=== PATIENT | male | born 1970 | race Caucasian/White ===

== ENCOUNTER 2017-11-21 18:56 | Inpatient (IN) ==
[2017-11-21] MEDS ORDERED: Sod Chloride 0.9% Inj 1,000 ML IV.SIG ONE ×2 (21:59→23:03)
[2017-11-21] MEDS ORDERED: Acetaminophen 325 MG Tablet PO ONE (22:26)
[2017-11-21 22:31] LABS: Baso # (Auto) 0.1 th/mm3 (0.0-0.2); Baso % (Auto) 0.5 % (0.0-2.0); Eos % (Auto) 0.1 % (0.0-4.0); Hematocrit 45.2 % (39.0-51.0); Hemoglobin 15.5 gm/dL (13.0-17.0); Lymph # (Auto) 0.4 th/mm3 (1.0-4.8); Lymph % (Auto) 2.8 % (9.0-44.0); Mean Corpuscular HGB Conc 34.3 % (32.0-36.0); Mean Corpuscular Hemoglobin 31.9 pg (27.0-34.0); Mean Platelet Volume 7.2 fL (7.0-11.0); Mono # (Auto) 1.1 th/mm3 (0.0-0.9); Mono % (Auto) 7.2 % (0.0-8.0); Neut # (Auto) 13.2 th/mm3 (1.8-7.7); Neut % (Auto) 89.4 % (16.0-70.0); Platelet Count 234 th/mm3 (150-450); Red Blood Count 4.86 mil/mm3 (4.50-5.90); Red Cell Distribution Width 12.7 % (11.6-17.2); White Blood Count 14.8 th/mm3 (4.0-11.0)
--- NOTE | 2017-11-21 22:47 | ED ---
HPI General Chief complaint: Medical Clearance Stated complaint: poss sickness from anti biotics/shots urgent care Time Seen by Provider: 11/21/17 21:50 Source: patient and family Mode of arrival: ambulatory History of Present Illness HPI narrative: 47yM presenting with nausea, vomiting, and fever. The patient states that he developed a "sore" on his left ear a week ago and has been taking antibiotics (keflex/ bactrim) for the past 6 days. For the past 3 days, he has had nausea, vomiting, and inability to tolerate any PO intake associated with tactile fevers, diaphoresis, tremor, anxiety, and headache. He reports daily alcohol use (5-6 drinks per day) but has not been able to drink for the past several days due to vomiting; no known history of EtOH withdrawal in the past. Family history is non-contributory. Related Data Home Medications Medication Instructions Recorded Confirmed amoxicillin 500 mg PO TID 11/21/17 11/21/17 sulfamethoxazole-trimethoprim 1 tab PO BID 11/21/17 11/21/17 [Bactrim DS] Allergies Allergy/AdvReac Type Severity Reaction Status Date / Time caffeine AdvReac Tachycardia Verified 11/21/17 19:43 Review of Systems Except as stated in HPI: all other systems reviewed are negative Constitutional Reports fever(s) Eyes Reports other visual disturbances Comments: Reports "the lights look weird" ENT Reports headache(s) Cardiovascular Denies chest pain Respiratory Reports cough Gastrointestinal Reports nausea and Reports vomiting Genitourinary Denies urinary frequency Musculoskeletal Reports myalgias Integumentary/Breasts Reports as per HPI Neurologic Reports tremor(s) Psychiatric Reports anxiety [facility] Medical History Medical History Hypertension (Acute) Surgical History Surgical History No history of previous surgery (Acute) Social History Social History Substance History: No History of Abuse Second Hand Smoke Exposure: Yes Smoking Status: Unknown if ever smoked How Often Do You Have a Drink Containing Alcohol: 4 or more times a week Recent Travel in [facility] within the Last 8 Weeks: No Recent Out of Country Travel within the Last 8 Weeks: No Immunization History Tetanus Immunization: >5 Years Hx Influenza Vaccine This Season: No Exam Narrative Exam Narrative: GEN: Ill-appearing male, appears uncomfortable HEENT: NCAT, PERRL, EOMI; mucosa dry CARDIO: Tachy, regular PULM: Diminished at bases bilaterally ABD: Soft, non-tender, non-distended, no guarding or rebound EXT/MS: No lower extremity edema, warm and well-perfused SKIN: Purple colored lesion to left ear lobe, no drainage, no warmth, no diaphoresis NEURO: GCS 15, A&Ox3, speech clear and fluent, (+) tremor of bilateral hands, (+ ) tongue fasciculations PSYCH: Appears mildly anxious, cooperative with exam, does not appear to be internally preoccupied Course Initial Documented Vital Signs Temperature 99.0 F 11/21/17 19:40 Pulse Rate 138 H 11/21/17 19:40 Respiratory Rate 24 11/21/17 19:40 Blood Pressure 148/99 H 11/21/17 19:40 Pulse Oximetry 99 11/21/17 19:40 Last Documented Vital Signs Temperature 99.1 F 11/22/17 03:20 Pulse Rate 132 H 11/22/17 08:00 Respiratory Rate 18 11/22/17 08:00 Blood Pressure 114/69 11/22/17 08:00 Pulse Oximetry 96 11/22/17 08:00 Sign Out Sign Out Data: Patient Sign Out occurred on 11/21/17 at 23:22. Patient's care was discussed, and care was transferred from Patricia Allen DO to Joel Ahuja MD. Sign Out Comment: Patient's signs/ symptoms concerning for acute alcohol withdrawal. 2nd dose of ativan ordered, patient will need re-evaluation following dose to see if he is appropriate for med-surg vs IMC. Case discussed with Dr. Ahuja. Last updated by Patricia Allen DO at 11/21/17 23:04 Post-Handoff Eval: Patient care assumed from Dr. Allen at 2300. This is a 47 year old male presents to the er for evaluation of infection to left ear. Patient noted tachycardic, elevated WBC with neutrophilia. However, this ear infection is unimpressive. CXR negative. No other source of infection seen on physical exam. Patient now fairly somnolent after medication. Protecting airway. GCS now [id number]. I agree this is probably acute alcohol withdrawal and early DTs. He would benefit from admission to the hospital. SIRS criteria noted and again has been on antibiotics. I do not see obvious source of infection. Will defer any further antibiotic therapy to inpatient team. Medical Decision Making MDM Narrative Medical decision making narrative: Assessment: 47yM presenting with nausea, vomiting, tachycardia Plan: EKG and monitor IV fluids Benzos, antiemetics Labs CXR Reassess Differential Diagnosis Differential Diagnosis: Differential diagnosis includes, but is not limited to: alcohol withdrawal, dehydration, pneumonia, pancreatitis, electrolyte abnormality, lower suspicion for intra-abdominal process Medical Records Medical records reviewed: Yes I reviewed the patient's medical records. Lab Data Lab results reviewed: Yes I reviewed the patient's lab results. Result diagrams: 11/22/17 07:30 11/22/17 07:30 Lab Results 11/21/17 11/21/17 11/21/17 Range/Units 22:25 22:25 22:25 WBC 14.8 H (4.0-11.0) th/mm3 RBC 4.86 (4.50-5.90) mil/mm3 Hgb 15.5 (13.0-17.0) gm/dL Hct 45.2 (39.0-51.0) % MCV 93.0 (80.0-100.0) fL MCH 31.9 (27.0-34.0) pg MCHC 34.3 (32.0-36.0) % RDW 12.7 (11.6-17.2) % Plt Count 234 (150-450) th/mm3 MPV 7.2 (7.0-11.0) fL Prelim Diff (Auto) Slide review pending Neut % (Auto) 89.4 H (16.0-70.0) % Lymph % (Auto) 2.8 L (9.0-44.0) % [place] % (Auto) 7.2 (0.0-8.0) % Eos % (Auto) 0.1 (0.0-4.0) % Baso % (Auto) 0.5 (0.0-2.0) % Neut # (Auto) 13.2 H (1.8-7.7) th/mm3 Lymph # (Auto) 0.4 L (1.0-4.8) th/mm3 [place] # (Auto) 1.1 H (0.0-0.9) th/mm3 Eos # (Auto) 0.0 (0.0-0.4) th/mm3 Baso # (Auto) 0.1 (0.0-0.2) th/mm3 WBC Differential Manual diff final Seg Neuts % (Manual) 75 H (16-70) % Band Neuts % (Manual) 13 H (0-6) % Lymphocytes % (Manual) 2 L (9-44) % Monocytes % (Manual) 7 (0-8) % Metamyelocytes % (Man) 3 H (0-1) % Abs Neuts (Manual) 13.5 H (1.8-7.7) th/mm3 Differential Comment . Toxic Vacuolation Present H (None) Platelet Estimate Normal (Normal) Platelet Morphology Normal (Normal) RBC Morphology Normal (Normal) Sodium 132 L (136-145) meq/L Potassium 3.8 (3.5-5.1) meq/L Chloride 95 L (98-107) meq/L Carbon Dioxide 22.9 (21.0-32.0) meq/L Anion Gap 14 (5-15) meq/L BUN 7 (7-18) mg/dL Creatinine 1.16 (0.60-1.30) mg/dL Estimated GFR 68 L (>89) mL/min Random Glucose 124 H (74-106) mg/dL Lactic Acid (0.4-2.0) mmol/L Calcium 9.4 (8.5-10.1) mg/dL Magnesium 1.9 (1.5-2.5) mg/dL Total Bilirubin 0.6 (0.2-1.0) mg/dL AST 47 H (15-37) U/L ALT 64 (12-78) U/L Alkaline Phosphatase 93 (45-117) U/L Total Protein 8.5 H (6.4-8.2) g/dL Albumin 4.0 (3.4-5.0) g/dL Lipase 66 L (73-393) U/L Serum Alcohol Less than 3 (0-5) mg/dL 11/21/17 11/22/17 11/22/17 Range/Units 22:26 07:30 07:30 WBC 13.1 H (4.0-11.0) th/mm3 RBC 4.60 (4.50-5.90) mil/mm3 Hgb 14.7 (13.0-17.0) gm/dL Hct 43.4 (39.0-51.0) % MCV 94.4 (80.0-100.0) fL MCH 32.0 (27.0-34.0) pg MCHC 33.8 (32.0-36.0) % RDW 12.9 (11.6-17.2) % Plt Count 218 (150-450) th/mm3 MPV 7.5 (7.0-11.0) fL Prelim Diff (Auto) Neut % (Auto) 85.8 H (16.0-70.0) % Lymph % (Auto) 4.9 L (9.0-44.0) % [place] % (Auto) 8.8 H (0.0-8.0) % Eos % (Auto) 0.1 (0.0-4.0) % Baso % (Auto) 0.4 (0.0-2.0) % Neut # (Auto) 11.3 H (1.8-7.7) th/mm3 Lymph # (Auto) 0.6 L (1.0-4.8) th/mm3 [place] # (Auto) 1.2 H (0.0-0.9) th/mm3 Eos # (Auto) 0.0 (0.0-0.4) th/mm3 Baso # (Auto) 0.0 (0.0-0.2) th/mm3 WBC Differential . Seg Neuts % (Manual) (16-70) % Band Neuts % (Manual) (0-6) % Lymphocytes % (Manual) (9-44) % Monocytes % (Manual) (0-8) % Metamyelocytes % (Man) (0-1) % Abs Neuts (Manual) (1.8-7.7) th/mm3 Differential Comment Auto diff final Toxic Vacuolation (None) Platelet Estimate (Normal) Platelet Morphology (Normal) RBC Morphology (Normal) Sodium 135 L (136-145) meq/L Potassium 3.1 L (3.5-5.1) meq/L Chloride 99 (98-107) meq/L Carbon Dioxide 22.7 (21.0-32.0) meq/L Anion Gap 13 (5-15) meq/L BUN 7 (7-18) mg/dL Creatinine 1.14 (0.60-1.30) mg/dL Estimated GFR 69 L (>89) mL/min Random Glucose 116 H (74-106) mg/dL Lactic Acid 1.6 (0.4-2.0) mmol/L Calcium 8.9 (8.5-10.1) mg/dL Magnesium (1.5-2.5) mg/dL Total Bilirubin 0.6 (0.2-1.0) mg/dL AST 44 H (15-37) U/L ALT 65 (12-78) U/L Alkaline Phosphatase 86 (45-117) U/L Total Protein 7.9 D (6.4-8.2) g/dL Albumin 3.6 (3.4-5.0) g/dL Lipase (73-393) U/L Serum Alcohol (0-5) mg/dL 11/22/17 Range/Units 08:10 WBC (4.0-11.0) th/mm3 RBC (4.50-5.90) mil/mm3 Hgb (13.0-17.0) gm/dL Hct (39.0-51.0) % MCV (80.0-100.0) fL MCH (27.0-34.0) pg MCHC (32.0-36.0) % RDW (11.6-17.2) % Plt Count (150-450) th/mm3 MPV (7.0-11.0) fL Prelim Diff (Auto) Neut % (Auto) (16.0-70.0) % Lymph % (Auto) (9.0-44.0) % [place] % (Auto) (0.0-8.0) % Eos % (Auto) (0.0-4.0) % Baso % (Auto) (0.0-2.0) % Neut # (Auto) (1.8-7.7) th/mm3 Lymph # (Auto) (1.0-4.8) th/mm3 [place] # (Auto) (0.0-0.9) th/mm3 Eos # (Auto) (0.0-0.4) th/mm3 Baso # (Auto) (0.0-0.2) th/mm3 WBC Differential Seg Neuts % (Manual) (16-70) % Band Neuts % (Manual) (0-6) % Lymphocytes % (Manual) (9-44) % Monocytes % (Manual) (0-8) % Metamyelocytes % (Man) (0-1) % Abs Neuts (Manual) (1.8-7.7) th/mm3 Differential Comment Toxic Vacuolation (None) Platelet Estimate (Normal) Platelet Morphology (Normal) RBC Morphology (Normal) Sodium (136-145) meq/L Potassium (3.5-5.1) meq/L Chloride (98-107) meq/L Carbon Dioxide (21.0-32.0) meq/L Anion Gap (5-15) meq/L BUN (7-18) mg/dL Creatinine (0.60-1.30) mg/dL Estimated GFR (>89) mL/min Random Glucose (74-106) mg/dL Lactic Acid 6.2 H* (0.4-2.0) mmol/L Calcium (8.5-10.1) mg/dL Magnesium (1.5-2.5) mg/dL Total Bilirubin (0.2-1.0) mg/dL AST (15-37) U/L ALT (12-78) U/L Alkaline Phosphatase (45-117) U/L Total Protein (6.4-8.2) g/dL Albumin (3.4-5.0) g/dL Lipase (73-393) U/L Serum Alcohol (0-5) mg/dL Imaging Data Attestation: I personally reviewed and interpreted this imaging study as follows : My impression: CXR0 Airway midline. No focal infiltrates. No pneumothorax. No pleural effusion. Cardiac and mediastinal silhouettes within normal limits. Radiologist's impression: ITS Impressions Chest X-Ray 11/21/17 21:59 CONCLUSION: No acute cardiopulmonary process. Abdomen/Pelvis CT 11/22/17 00:01 CONCLUSION: 1. Moderate bladder distention. Although nonspecific, consider evaluation for bladder outlet obstruction or neurogenic bladder. 2. Mild hepatomegaly with diffusely decreased hepatic density consistent with hepatic steatosis or medical liver disease. 3. Normal appendix. Discharge Plan Discharge Disposition Patient Disposition: 30 Still Patient Discharge Condition Condition: Stable Discharge Details Diagnosis: Alcohol withdrawal, SIRS (systemic inflammatory response syndrome) Physicians Team ED Provider: Joel Ahuja Primary Care Provider: Primary Care Tania Lockett Attending Provider: Deion Salas Other Providers: Grace Golden Interventions Interventions: Vital Signs Last Done: 11/22/17 00:59 Status ED Status: Admitted Observation Patient
--- NOTE | 2017-11-21 22:50 | XR ---
EXAM DATE: 11/21/2017 10:41 PM EDT AGE/SEX: 47 years / Male INDICATIONS: Short of breath. CLINICAL DATA: This is the patient's initial encounter. Patient reports that signs and symptoms have been present for 4 - 6 days and indicates a pain score of 0/10. MEDICAL/SURGICAL HISTORY: None. None. COMPARISON: No prior exams available for comparison. FINDINGS: A single AP view of the chest demonstrates the lungs to be symmetrically aerated without evidence of mass, infiltrate or effusion. The cardiomediastinal contours are unremarkable. Osseous structures a re intact. CONCLUSION: No acute cardiopulmonary process. Electronically signed by: Milton Ybarra MD 11/21/2017 10:48 PM EDT
[2017-11-21 22:56] LABS: Anion Gap 14 meq/L (5-15); Aspartate Aminotransferase 47 U/L (15-37); Blood Urea Nitrogen 7 mg/dL (7-18); Calcium 9.4 mg/dL (8.5-10.1); Carbon Dioxide 22.9 meq/L (21.0-32.0); Chloride 95 meq/L (98-107); Glomerular Filtration Rate 68 mL/min (>89); Glucose,Random 124 mg/dL (74-106); Lipase 66 U/L (73-393); Magnesium 1.9 mg/dL (1.5-2.5); Potassium 3.8 meq/L (3.5-5.1); Sodium 132 meq/L (136-145)
[2017-11-21 22:57] LABS: Alanine Aminotransferase 64 U/L (12-78)
[2017-11-21 22:59] LABS: Alkaline Phosphatase 93 U/L (45-117); Total Protein 8.5 g/dL (6.4-8.2)
[2017-11-21 23:09] LABS: Lymphocytes 2 % (9-44); Metamyelocytes 3 % (0-1); Monocytes 7 % (0-8); Platelet Estimate Normal (Normal); Platelet Morphology Normal (Normal); RBC Morphology Normal (Normal); Toxic Vacuolation Present
--- NOTE | 2017-11-22 01:22 | CT ---
EXAM DATE: 11/22/2017 1:12 AM EDT AGE/SEX: 47 years / Male INDICATIONS: Abdomen pain. CLINICAL DATA: This is the patient's initial encounter. Patient reports that signs and symptoms have been present for 1 day and indicates a pain score of 5/10. MEDICAL/SURGICAL HISTORY: Hypertension. None. ORAL CONTRAST: No oral contrast ingested. RADIATION DOSE: 9.96 CTDI (mGy) COMPARISON: No prior exams available for comparison. TECHNIQUE: Multiple contiguous axial images were obtained through the abdomen and pelvis following b olus infusion of 100 ml Omnipaque 350 (iohexol) nonionic water-soluble contrast as a single exam do se. No oral contrast ingested. Using automated exposure control and adjustment of the mA and/or kV a ccording to patient size, radiation dose was kept as low as reasonably achievable to obtain optimal d iagnostic quality images. DICOM format image data is available electronically for review and compari son. FINDINGS: LOWER LUNGS: The visualized lower lungs are clear. LIVER: Diffusely decreased hepatic density and mild hepatomegaly. No intrahepatic ductal dilatation or significant focal mass. No calcified gallstones. SPLEEN: Homogeneous density without enlargement. PANCREAS: Unremarkable without mass or calcification. KIDNEYS: Kidneys demonstrate symmetrical enhancement and are symmetrical in size without evidence fo r radiopaque renal calculi or hydronephrosis. ADRENAL GLANDS: Unremarkable. AORTA: Thania-aneurysmal. BOWEL/MESENTERY: The bowel loops are grossly unremarkable. The cecum and sigmoid colon have a janell l configuration. Appendix is visualized and normal in appearance. No free fluid or drainable fluid co llections. ABDOMINAL WALL: Intact. RETROPERITONEUM: No evidence of adenopathy in the retrocrural, para-aortic, or deep pelvic regions. BLADDER: Bladder is moderately distended but otherwise unremarkable. REPRODUCTIVE: No abnormal masses or calcifications seen. BONY STRUCTURES: Unremarkable. CONCLUSION: 1. Moderate bladder distention. Although nonspecific, consider evaluation for bladder outlet obstruc tion or neurogenic bladder. 2. Mild hepatomegaly with diffusely decreased hepatic density consistent with hepatic steatosis or m edical liver disease. 3. Normal appendix. Electronically signed by: Boone Mckeon MD 11/22/2017 1:21 AM EDT
[2017-11-22] MEDS ORDERED: Haloperidol Inj 5 MG/ML Ampul IV.PUSH PRN (02:53)
[2017-11-22] MEDS ORDERED: Clindamycin 900 mg/NS Premix 900 MG/50 ML PIGGYBACK IV.SIG SCH (03:00)
[2017-11-22] MEDS ORDERED: Vancomycin Consult Pharmacy 1 EACH OTHER SCH (08:15)
--- NOTE | 2017-11-22 08:17 | P.HP ---
History of Present Illness Primary Care Physician: No Primary Care Physician Chief Complaint: Left ear pain, generalized weakness History of Present Illness: Mr. Chen is a 47-year-old male with a history of hypertension who presented to the emergency department on 11/21/2017 due to generalized weakness, left ear pain as well as nausea and vomiting. He went to an urgent care about 10 days ago due to left earlobe pain and lesion. He apparently was given several doses of IV steroid as well as prescription for Keflex and Bactrim. His symptoms did not improve and he started having fever, diaphoresis. Subsequently he decided to come to the emergency department. Patient reports drinking 5-6 alcoholic drinks a day. However due to nausea vomiting he has not had much to drink in the recent few days. At the time of this interview, patient feels fatigued. No chest pain, shortness of breath. No changes in bowel or bladder habits. - Diagnosis (1) Severe sepsis (2) Abscess of left earlobe (3) Alcohol withdrawal Inpatient Certification: I certify that the inpatient services were ordered in accordance with Medicare regulations governing the order. This includes certification that hospital inpatient services are reasonable and necessary and in the case of services not specified as inpatient-only under 42 CFR 419.22(n), that they are appropriately provided as inpatient services in accordance to with the 2-midnight benchmark under 43 CFR 412.3(e) Estimated Total Length of Stay (Days): 2 Plans for Post Hospital Care: Not yet determined Review of Systems All other systems reviewed negative except as stated in HPI Constitutional: Reports body ache(s), Reports fatigue, Reports fever(s) Comments: Left earlobe pain, lesion Cardiovascular: Reports fast heart rate PMFSH - History History Provided By: Patient - Medical History Medical History: Medical History (Last Reviewed 11/21/17 @ 22:40 by Patricia Allen DO) Hypertension - Surgical History Surgical History: Surgical History (Last Reviewed 11/21/17 @ 22:40 by Patricia Allen DO) No history of previous surgery - Tobacco History Second Hand Smoke Exposure: Yes Tobacco Use In Past 30 Days: Yes Smoking Status: Unknown if ever smoked - Alcohol History How Often Do You Have a Drink Containing Alcohol: 4 or more times a week - Substance Use History Substance History: No History of Abuse - Travel History Recent Travel in the [facility] Within the Last 8 Weeks: No Recent Travel Out of the Country Within the Last 8 Weeks: No - Immunization History Tetanus Immunization: >5 Years Hx Influenza Vaccine This Season: No Medications and Allergies Active Medications: Active Medications Flumazenil (Romazecon Inj) 0.2 mg IV.PUSH Q1M PRN PRN Reason: OVERSEDATION Folic Acid (Folic Acid) 1 mg PO DAILY [facility] Stop: 11/27/17 08:59 Haloperidol Lactate (Haldol Inj) 1 mg IV.PUSH Q15M PRN PRN Reason: for severe agitation Clindamycin/Sodium Chloride (Cleocin 900 Mg/Ns Premix) 900 mg in 50 mls @ 100 mls/hr IV.SIG Q8H [facility] Last Admin: 11/22/17 04:59 Dose: 100 mls/hr Piperacillin/Tazobactam/Dextrose (Zosyn 4.5 Gm Premix) 4.5 gm in 100 mls @ 200 mls/hr IV.SIG Q6H [facility] Vancomycin HCl 1,500 mg/ (Sodium Chloride) 515 mls @ 250 mls/hr IV.SIG ONCE ONE Stop: 11/22/17 10:18 Sodium Chloride (Ns Inj) 1,000 mls @ 125 mls/hr IV.CONT .Q8H [facility] Pharmacy Profile Note (Vancomycin Consult Pharmacy) 0 mls @ 0 mls/hr OTHER UNSCH [facility] Lorazepam (Ativan) 1 mg PO Q4H PRN PRN Reason: for CIWA 8-10 Lorazepam (Ativan) 2 mg PO Q2H PRN PRN Reason: for CIWA 11-14 Lorazepam (Ativan Inj) 2 mg IV.PUSH Q2H PRN PRN Reason: for CIWA 11-14 Last Admin: 11/22/17 05:00 Dose: 2 mg Lorazepam (Ativan Inj) 2 mg IV.PUSH Q1H PRN PRN Reason: for CIWA 15-20 Lorazepam (Ativan Inj) 2 mg IV.PUSH Q15M PRN PRN Reason: for CIWA > 20 Lorazepam (Ativan Inj) 1 mg IV.PUSH Q4H PRN PRN Reason: for CIWA 8-10 Last Admin: 11/22/17 07:28 Dose: 1 mg Multivitamins/Minerals (Theragran-M) 1 tab PO DAILY [facility] Stop: 11/27/17 08:59 Ondansetron HCl (Zofran Inj) 4 mg IV.PUSH Q6H PRN PRN Reason: NAUSEA OR VOMITING Ondansetron HCl (Zofran Odt) 4 mg PO Q6H PRN PRN Reason: NAUSEA OR VOMITING Thiamine HCl (Vitamin B1) 100 mg PO DAILY [facility] Allergies Allergy/AdvReac Type Severity Reaction Status Date / Time caffeine AdvReac Tachycardia Verified 11/21/17 19:43 Home Medications Medication Instructions Recorded Confirmed Type amoxicillin 500 mg PO TID 11/21/17 11/21/17 History sulfamethoxazole-trimethoprim 1 tab PO BID 11/21/17 11/21/17 History [Bactrim DS] Exam Vital signs: Vital Signs 11/21/17 19:40 11/21/17 19:42 11/21/17 22:54 Temperature 99.0 F 100.5 F H Pulse Rate 138 H 126 H 140 H Respiratory Rate 24 20 24 Blood Pressure 148/99 H 139/87 145/89 H Pulse Oximetry 99 98 99 11/21/17 23:39 11/22/17 00:59 11/22/17 03:20 Temperature 99.3 F 98.4 F 99.1 F Pulse Rate 138 H 120 H 120 H Respiratory Rate 20 20 Blood Pressure 134/70 124/78 113/70 Pulse Oximetry 98 97 11/22/17 06:43 11/22/17 07:30 Temperature Pulse Rate 142 H 142 H Respiratory Rate 20 Blood Pressure 125/81 130/85 Pulse Oximetry 20 L 97 Intake & Output 11/21/17 11/22/17 11/22/17 18:59 06:59 18:59 Intake Total 200 / 200 Output Total 500 / 500 Balance -300 / -300 Weight 83.915 kg Intake: Oral 200 / 200 Output: Urine 500 / 500 Other: # Voids 1 Narrative: GENERAL: This is a well-nourished, well-developed patient, in no apparent distress. SKIN: No rashes, ecchymoses or lesions. Warm and dry. HEAD: Atraumatic. Normocephalic. No temporal or scalp tenderness. EYES: Pupils equal round and reactive. No injection or drainage. ENT: Nose without bleeding, purulent drainage or septal hematoma. Airway patent. Left earlobe has a purplish lesion, no drainage. NECK: Trachea midline. No lymphadenopathy. Supple, nontender, no meningeal signs. CARDIOVASCULAR: Tachycardic without murmurs, gallops, or rubs. No JVD. RESPIRATORY: Clear to auscultation. Breath sounds equal bilaterally. No wheezes , rales, or rhonchi. GASTROINTESTINAL: Abdomen soft, non-tender, nondistended. No guarding. MUSCULOSKELETAL: Extremities without clubbing, cyanosis, or edema. NEUROLOGICAL: Awake and alert. Cranial nerves II through XII intact. No focal neurological deficits. Normal speech. Results - Labs CBC & Chem 7: 11/22/17 07:30 11/22/17 07:30 Labs: Laboratory Results - last 24 hr 11/21/17 11/21/17 11/21/17 22:25 22:25 22:25 WBC 14.8 H RBC 4.86 Hgb 15.5 Hct 45.2 MCV 93.0 MCH 31.9 MCHC 34.3 RDW 12.7 Plt Count 234 MPV 7.2 Prelim Diff (Auto) Slide review pending Neut % (Auto) 89.4 H Lymph % (Auto) 2.8 L Waldo % (Auto) 7.2 Eos % (Auto) 0.1 Baso % (Auto) 0.5 Neut # (Auto) 13.2 H Lymph # (Auto) 0.4 L Waldo # (Auto) 1.1 H Eos # (Auto) 0.0 Baso # (Auto) 0.1 WBC Differential Manual diff final Seg Neuts % (Manual) 75 H Band Neuts % (Manual) 13 H Lymphocytes % (Manual) 2 L Monocytes % (Manual) 7 Metamyelocytes % (Man) 3 H Abs Neuts (Manual) 13.5 H Differential Comment . Toxic Vacuolation Present H Platelet Estimate Normal Platelet Morphology Normal RBC Morphology Normal Sodium 132 L Potassium 3.8 Chloride 95 L Carbon Dioxide 22.9 Anion Gap 14 BUN 7 Creatinine 1.16 Estimated GFR 68 L Random Glucose 124 H Lactic Acid Calcium 9.4 Magnesium 1.9 Total Bilirubin 0.6 AST 47 H ALT 64 Alkaline Phosphatase 93 Total Protein 8.5 H Albumin 4.0 Lipase 66 L Serum Alcohol Less than 3 11/21/17 22:26 WBC RBC Hgb Hct MCV MCH MCHC RDW Plt Count MPV Prelim Diff (Auto) Neut % (Auto) Lymph % (Auto) Waldo % (Auto) Eos % (Auto) Baso % (Auto) Neut # (Auto) Lymph # (Auto) Waldo # (Auto) Eos # (Auto) Baso # (Auto) WBC Differential Seg Neuts % (Manual) Band Neuts % (Manual) Lymphocytes % (Manual) Monocytes % (Manual) Metamyelocytes % (Man) Abs Neuts (Manual) Differential Comment Toxic Vacuolation Platelet Estimate Platelet Morphology RBC Morphology Sodium Potassium Chloride Carbon Dioxide Anion Gap BUN Creatinine Estimated GFR Random Glucose Lactic Acid 1.6 Calcium Magnesium Total Bilirubin AST ALT Alkaline Phosphatase Total Protein Albumin Lipase Serum Alcohol - Imaging Impressions Chest X-Ray 11/21/17 21:59 CONCLUSION: No acute cardiopulmonary process. Abdomen/Pelvis CT 11/22/17 00:01 CONCLUSION: 1. Moderate bladder distention. Although nonspecific, consider evaluation for bladder outlet obstruction or neurogenic bladder. 2. Mild hepatomegaly with diffusely decreased hepatic density consistent with hepatic steatosis or medical liver disease. 3. Normal appendix. Caprini VTE Risk Assessment Caprini VTE Risk Assessment: Moderate/High Risk (score >= 2) Caprini Risk Assessment Model: Point Value = 1 Point Value = 2 Point Value = 3 Point Value = 5 Age 41-60 Minor surgery BMI > 25 kg/m2 Swollen legs Varicose veins or History of unexplained or recurrent spontaneous Oral contraceptives or hormone replacement Sepsis (< 1 month) Serious lung disease, including pneumonia (< 1 month) Abnormal pulmonary function Acute myocardial infarction Congestive heart failure (< 1 month) History of inflammatory bowel disease Medical patient at bed rest Age 61-74 Arthroscopic surgery Major open surgery (> 45 min) Laparoscopic surgery (> 45 min) Malignancy Confined to bed (> 72 hours) Immobilizing plaster cast Central venous access Age >= 75 History of VTE Family history of VTE Factor V Leiden Prothrombin [id number] Lupus anticoagulant Anticardiolipin antibodies Elevated serum homocysteine Heparin-induced thrombocytopenia Other congenital or acquired thrombophilia Stroke (< 1 month) Elective arthroplasty Hip, pelvis, or leg fracture Acute spinal cord injury (< 1 month) Prophylaxis Regimen: Total Risk Factor Score Risk Level Prophylaxis Regimen 0-1 Low Early ambulation 2 Moderate Order ONE of the following: *Sequential Compression Device (SCD) *Heparin 5000 units SQ BID 3-4 Higher Order ONE of the following medications: *Heparin 5000 units SQ TID *Enoxaparin/Lovenox 40 mg SQ daily (WT < 150 kg, CrCl > 30 mL/min) *Enoxaparin/Lovenox 30 mg SQ daily (WT < 150 kg, CrCl > 10-29 mL/min) *Enoxaparin/Lovenox 30 mg SQ BID (WT < 150 kg, CrCl > 30 mL/min) AND/OR *Sequential Compression Device (SCD) 5 or more Highest Order ONE of the following medications: *Heparin 5000 units SQ TID (Preferred with Epidurals) *Enoxaparin/Lovenox 40 mg SQ daily (WT < 150 kg, CrCl > 30 mL/min) *Enoxaparin/Lovenox 30 mg SQ daily (WT < 150 kg, CrCl > 10-29 mL/min) *Enoxaparin/Lovenox 30 mg SQ BID (WT < 150 kg, CrCl > 30 mL/min) AND *Sequential Compression Device (SCD) Assessment and Plan - Assessment (1) Severe sepsis Code(s): A41.9 - Sepsis, unspecified organism; R65.20 - Severe sepsis without septic shock Status: Acute (2) Abscess of left earlobe Code(s): H60.02 - Abscess of left external ear Status: Acute (3) Alcohol withdrawal Code(s): F10.239 - Alcohol dependence with withdrawal, unspecified Status: Acute - Plan Mr. Chen is a 47 year old male with a history of hypertension, alcoholism who presents to the ED due to generalized weakness, left earlobe lesion, subjective fever, nausea and vomiting. Patient was recently treated at an urgent care for earlobe lesion with bactrim, keflex and probably IV steroid. Severe Sepsis (Tachycardic, leukocytosis, Lactic acid 6.2, Suspected infection left earlobe) Left earlobe abscess Likely Varicella Zoster infection (Chicken Pox) Possible virus encephalopathy - Will switch Clindamycin to Vanc and Zosyn for now. - Consulted ID who recommended starting patient on Acyclovir, MRI brain and LP - Start IV NS @ 125cc/hour and 2L NS bolus. - Lactic acid 1.6 on admission, repeat Lactic acid 6.2. Alcohol abuse - [facility] protocol - Thiamine IV, Folic acid PO. Mild Acute kidney injury Mild hyponatremia Hypokalemia - Creatinine 1.16 ==> 1.14. Na 132 ==> 135. K 3.8 ==> 3.1. - Will give IV KCL. Mg was 1.9. Full code. Lovenox.
[2017-11-22 09:41] LABS: Baso % (Auto) 0.4 % (0.0-2.0); Eos % (Auto) 0.1 % (0.0-4.0); Hematocrit 43.4 % (39.0-51.0); Hemoglobin 14.7 gm/dL (13.0-17.0); Lymph # (Auto) 0.6 th/mm3 (1.0-4.8); Lymph % (Auto) 4.9 % (9.0-44.0); Mean Corpuscular HGB Conc 33.8 % (32.0-36.0); Mean Corpuscular Volume 94.4 fL (80.0-100.0); Mean Platelet Volume 7.5 fL (7.0-11.0); Mono # (Auto) 1.2 th/mm3 (0.0-0.9); Mono % (Auto) 8.8 % (0.0-8.0); Neut # (Auto) 11.3 th/mm3 (1.8-7.7); Neut % (Auto) 85.8 % (16.0-70.0); Platelet Count 218 th/mm3 (150-450); Red Cell Distribution Width 12.9 % (11.6-17.2); White Blood Count 13.1 th/mm3 (4.0-11.0)
[2017-11-22] MEDS: Multivitamin/Minerals Therapeutic Tablet PO SCH (09:47)
[2017-11-22] MEDS: Folic Acid 1 MG Tablet PO SCH (09:47)
[2017-11-22] MEDS: Piperacil/Tazo 4.5 GM Premix 4.5 GM/100 ML BAG IV.SIG SCH (09:47)
[2017-11-22] MEDS: Sod Chloride 0.9% Inj 1,000 ML IV.CONT SCH (09:48)
[2017-11-22 10:03] LABS: Albumin 3.6 g/dL (3.4-5.0); Anion Gap 13 meq/L (5-15); Blood Urea Nitrogen 7 mg/dL (7-18); Calcium 8.9 mg/dL (8.5-10.1); Carbon Dioxide 22.7 meq/L (21.0-32.0); Chloride 99 meq/L (98-107); Glomerular Filtration Rate 69 mL/min (>89); Glucose,Random 116 mg/dL (74-106); Potassium 3.1 meq/L (3.5-5.1); Sodium 135 meq/L (136-145)
[2017-11-22 10:05] LABS: Aspartate Aminotransferase 44 U/L (15-37)
[2017-11-22 10:08] LABS: Alanine Aminotransferase 65 U/L (12-78); Alkaline Phosphatase 86 U/L (45-117); Total Protein 7.9 g/dL (6.4-8.2)
[2017-11-22] MEDS ORDERED: Potassium Chlor 20 mEq Premix 20 MEQ/100 ML PIGGYBACK IV.SIG SCH (10:30)
[2017-11-22] MEDS ORDERED: Vancomycin Inj 1,500 MG in Sodium Chlor 0.9% Inj 500 ML IV.SIG ONE (11:00)
[2017-11-22] MEDS ORDERED: Sod Chloride 0.9% Inj 2,000 ML IV.SIG ONE (11:06)
[2017-11-22] MEDS: Thiamine Inj 100 MG in Sodium Chlor 0.9% Inj 100 ML IV.SIG SCH (11:18)
--- NOTE | 2017-11-22 15:03 | P.CONID ---
History of Present Illness Service: ID Consult date: 11/22/17 Requesting Physician: Deion Salas Reason for Consult: Evaluation and Mment of Left ear lobe abscess Primary Care Provider: No Primary Care Physician Chief Complaint: Left ear pain, generalized weakness History of Present Illness: Mr. Chen is a 47-year-old male with past medical history of hypertension presents to the emergency department on November 21, 2017 generalized weakness, left ear pain as well as nausea and vomiting. Patient went to the urgent care about 10 days back due to left earlobe pain and lesion. He apparently was given several doses of IV steroids as well as a prescription of Keflex and Bactrim. His symptoms did not improve and patient started developing fever and diaphoresis. Due to extreme weakness and persistent nausea and vomiting patient presented to the hospital not so much for the left earlobe. Regarding his nausea and vomiting patient denies any history of prior gastritis. Patient does report drinking several beers up to 5 beers daily for many years. Patient denies taking any [id number] pain medications recently. The only other medications he has been on his Keflex and Bactrim. Patient went to work yesterday in the middle of his work he felt extremely weak and fatigued as he has not been eating well for the last few days. At the time of my evaluation patient was in the emergency department. Upon questioning patient's right reported that they have noticed lesions all over his back, chest abdomen as well as upper and lower extremities since he got into the hospital. Patient reports prior history of chickenpox. Patient denies any prior known history of HIV and hepatitis or any other immune compromised status. Patient consented to being tested for HIV as well as hepatitis. 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 He denies any history of trauma or any sharp needles having been an inciting agent. Pertinent positives and negatives: Patient reports a headache but no visual changes. Patient reports pain in the neck especially on movement. Infectious diseases consulted for evaluation and management of left earlobe abscess. Review of Systems Constitutional: Reports body ache(s), Reports fatigue, Reports fever(s), Reports lack of energy, Reports malaise, Reports weakness Eyes: Denies blind spots, Denies blurry vision, Denies bulging eyes, Denies change in vision, Denies double vision, Denies discharge, Denies dry eyes, Denies floaters, Denies irritation, Denies itchy eyes, Denies loss of vision, Denies pain, Denies requires corrective lenses, Denies sensitivity to light, Denies other Ears, Nose, Mouth, and Throat: Denies abnormal hearing, Denies bleeding gums, Denies bad breath, Denies change in voice, Denies dental pain, Denies difficulty swallowing, Denies dizziness, Denies dry mouth, Denies ear discharge , Denies ear pain, Denies facial pain, Denies headache(s), Denies hearing loss, Denies hoarseness, Denies lip swelling, Denies nosebleed, Denies mouth lesions, Denies mouth pain, Denies nasal congestion, Denies nasal discharge, Denies nasal obstruction, Denies nasal trauma, Denies neck lump, Denies neck pain, Denies nose pain, Denies pain with swallowing, Denies poor balance, Denies post nasal drip, Denies ringing in the ears, Denies sinus pain, Denies sinus pressure , Denies sore throat, Denies throat swelling, Denies tongue swelling, Denies other Cardiovascular: Denies chest pain, Denies chest pain at rest, Denies chest pain with activity, Denies excessive sweating, Denies fainting, Denies fast heart rate, Denies foot swelling, Denies generalized swelling, Denies irregular heart rhythm, Denies leg pain with activity, Denies leg sores, Denies leg swelling, Denies lightheadedness, Denies radiating jaw, neck or arm pain, Denies rapid, pounding, or irregular heartbeat, Denies shortness of breath, Denies shortness of breath with activity, Denies shortness of breath when lying down, Denies shortness of breath causing sudden awakening, Denies slow heart rate, Denies other Respiratory: Denies change in phlegm color, Denies chest congestion, Denies cough, Denies coughing up blood, Denies excessive phlegm production, Denies pain on inspiration, Denies pain with cough, Denies shortness of breath, Denies shortness of breath with activity, Denies snoring, Denies stridor, Denies wheezing, Denies other Gastrointestinal: Denies abdominal pain, Denies belching, Denies black, tarry stools, Denies bloating, Denies bright, red blood in stools, Denies change in bowel habits, Denies constant urge to pass stool, Denies change in stools, Denies coffee ground vomit, Denies constipation, Denies cramping, Denies difficulty swallowing, Denies excessive passing of gas, Denies feeling full early, Denies heartburn, Denies incontinent of stools, Denies loose stools, Denies nausea, Denies pain with swallowing, Denies vomiting, Denies vomiting blood, Denies other Genitourinary: Denies blood in semen, Denies blood in urine, Denies decreased urination, Denies difficulty urinating, Denies difficulty with ejaculations, Denies erectile dysfunction, Denies genital lesions, Denies genital pain, Denies painful urination, Denies side pain, Denies frequent nighttime urination , Denies painful ejaculations, Denies penile discharge, Denies scrotal swelling , Denies testicle lump, Denies testicle pain, Denies urinary frequency, Denies urinary hesitancy, Denies urinary incontinence, Denies urinary urgency, Denies other Musculoskeletal: Denies abnormal walking, Denies back pain, Denies body aches, Denies decreased muscle mass, Denies deformity, Denies joint pain, Denies joint swelling, Denies limited joint movement, Denies loss of height, Denies muscle cramps, Denies muscle weakness, Denies neck pain, Denies numbness, Denies radiating pain into limb, Denies stiffness, Denies tingling, Denies other Skin/Breast: Reports changing lesions Neurologic: Reports headache(s), Reports other Comments: Neck pain. Psychiatric: Denies abnormal sleep pattern, Denies anxiety, Denies behavioral changes, Denies change in appetite, Denies change in sex drive, Denies confusion , Denies depression, Denies difficulty concentrating, Denies hearing things others do not hear, Denies hopelessness, Denies irritability, Denies lack of enjoyment, Denies memory loss, Denies mood swings, Denies panic attacks, Denies paranoia, Denies seeing things others do not see, Denies sensing things others do not sense, Denies tactile hallucinations, Denies thoughts of hurting/killing others, Denies thoughts of hurting/killing yourself, Denies other Endocrine: Denies cold intolerance, Denies excessive sweating, Denies flushing, Denies heat intolerance, Denies increased hunger, Denies increased thirst, Denies increased urination, Denies rapid, pounding, or irregular heartbeat, Denies other Allergic/Immunologic: Denies GI upset with certain foods, Denies hives, Denies itchy eyes, Denies lip swelling, Denies seasonal runny nose, Denies throat swelling, Denies tongue swelling, Denies wheezing, Denies other PMFSH - History History Provided By: Patient - Medical History Medical History: Medical History (Last Reviewed 11/21/17 @ 22:40 by Patricia Allen DO) Hypertension - Surgical History Surgical History: Surgical History (Last Reviewed 11/21/17 @ 22:40 by Patricia Allen DO) No history of previous surgery - Tobacco History Second Hand Smoke Exposure: Yes Tobacco Use In Past 30 Days: Yes Smoking Status: Unknown if ever smoked - Alcohol History How Often Do You Have a Drink Containing Alcohol: 4 or more times a week - Substance Use History Substance History: No History of Abuse - Travel History Recent Travel in the [facility] Within the Last 8 Weeks: No Recent Travel Out of the Country Within the Last 8 Weeks: No - Immunization History Tetanus Immunization: >5 Years Hx Influenza Vaccine This Season: No Medications and Allergies Active Medications: Active Medications Enoxaparin Sodium (Lovenox Inj) 40 mg SQ Q24H DAVID Flumazenil (Romazecon Inj) 0.2 mg IV.PUSH Q1M PRN PRN Reason: OVERSEDATION Folic Acid (Folic Acid) 1 mg PO DAILY DAVID Stop: 11/27/17 08:59 Last Admin: 11/22/17 09:47 Dose: 1 mg Haloperidol Lactate (Haldol Inj) 1 mg IV.PUSH Q15M PRN PRN Reason: for severe agitation Piperacillin/Tazobactam/Dextrose (Zosyn 4.5 Gm Premix) 4.5 gm in 100 mls @ 200 mls/hr IV.SIG Q6H DAVID Last Admin: 11/22/17 09:47 Dose: 200 mls/hr Sodium Chloride (Ns Inj) 1,000 mls @ 125 mls/hr IV.CONT .Q8H DAVID Last Admin: 11/22/17 09:48 Dose: 125 mls/hr Thiamine HCl 100 mg/ Sodium (Chloride) 101 mls @ 100 mls/hr IV.SIG DAILY DAVID Stop: 11/24/17 10:01 Last Admin: 11/22/17 11:18 Dose: 100 mls/hr Acyclovir Sodium 840 mg/ (Sodium Chloride) 166.8 mls @ 166.8 mls/hr IV.SIG ONCE ONE Stop: 11/22/17 14:56 Linezolid (Zyvox 600 Mg Premix) 300 mls @ 300 mls/hr IV.SIG Q12H DAVID Lorazepam (Ativan) 1 mg PO Q4H PRN PRN Reason: for CIWA 8-10 Lorazepam (Ativan) 2 mg PO Q2H PRN PRN Reason: for CIWA 11-14 Lorazepam (Ativan Inj) 2 mg IV.PUSH Q2H PRN PRN Reason: for CIWA 11-14 Last Admin: 11/22/17 05:00 Dose: 2 mg Lorazepam (Ativan Inj) 2 mg IV.PUSH Q1H PRN PRN Reason: for CIWA 15-20 Lorazepam (Ativan Inj) 2 mg IV.PUSH Q15M PRN PRN Reason: for CIWA > 20 Lorazepam (Ativan Inj) 1 mg IV.PUSH Q4H PRN PRN Reason: for CIWA 8-10 Last Admin: 11/22/17 08:59 Dose: 1 mg Multivitamins/Minerals (Theragran-M) 1 tab PO DAILY DAVID Stop: 11/27/17 08:59 Last Admin: 11/22/17 09:47 Dose: 1 tab Ondansetron HCl (Zofran Inj) 4 mg IV.PUSH Q6H PRN PRN Reason: NAUSEA OR VOMITING Ondansetron HCl (Zofran Odt) 4 mg PO Q6H PRN PRN Reason: NAUSEA OR VOMITING Last Admin: 11/22/17 09:47 Dose: 4 mg Thiamine HCl (Vitamin B1) 100 mg PO DAILY [facility] Allergies Allergy/AdvReac Type Severity Reaction Status Date / Time caffeine AdvReac Tachycardia Verified 11/21/17 19:43 Home Medications Medication Instructions Recorded Confirmed Type amoxicillin 500 mg PO TID 11/21/17 11/21/17 History sulfamethoxazole-trimethoprim 1 tab PO BID 11/21/17 11/21/17 History [Bactrim DS] Exam Vital signs: Vital Signs 11/21/17 19:40 11/21/17 19:42 11/21/17 22:54 Temperature 99.0 F 100.5 F H Pulse Rate 138 H 126 H 140 H Respiratory Rate 24 20 24 Blood Pressure 148/99 H 139/87 145/89 H Pulse Oximetry 99 98 99 11/21/17 23:39 11/22/17 00:59 11/22/17 03:20 Temperature 99.3 F 98.4 F 99.1 F Pulse Rate 138 H 120 H 120 H Respiratory Rate 20 20 Blood Pressure 134/70 124/78 113/70 Pulse Oximetry 98 97 11/22/17 06:43 11/22/17 07:30 11/22/17 08:00 Temperature Pulse Rate 142 H 142 H 140 H Respiratory Rate 20 17 Blood Pressure 125/81 130/85 114/69 Pulse Oximetry 20 L 97 96 11/22/17 11:32 Temperature Pulse Rate 123 H Respiratory Rate 16 Blood Pressure 119/73 Pulse Oximetry Intake & Output 11/21/17 11/22/17 11/22/17 18:59 06:59 18:59 Intake Total 200 / 200 Output Total 500 / 500 Balance -300 / -300 Weight 83.915 kg Intake: Oral 200 / 200 Output: Urine 500 / 500 Other: # Voids 1 1 Narrative: GENERAL: Well-nourished well-developed, not in acute distress SKIN: Left earlobe with area of fluctuance, erythema as well as tenderness noted. Some areas of darkening of the skin over this left earlobe noted. No discharge from the ear noted. Rest of the pain of the year with no erythema tenderness. Multiple maculopapular lesions, vesicular lesions noted all over the patient's body in various stages of presentation. The one on the left upper extremity appears to be scabbing. HEAD: Atraumatic. Normocephalic. No temporal or scalp tenderness. EYES: Pupils equal round and reactive. Scleral icterus. No injection or drainage. No petechia ENT: Nothing abnormal detected. NECK: Trachea midline. Pain on flexion of the neck. No obvious neck stiffness noted. CARDIOVASCULAR: HS audible. RESPIRATORY: Clear to auscultation bilaterally. GASTROINTESTINAL: Abdomen soft nontender. MUSCULOSKELETAL: Extremities without clubbing, cyanosis. NEUROLOGICAL: Alert oriented 3. Nonfocal. Psych cooperative IV line sites ok. Results - Labs CBC & Chem 7: 11/22/17 07:30 11/22/17 07:30 Labs: Laboratory Results - last 24 hr 11/21/17 11/21/17 11/21/17 22:25 22:25 22:25 WBC 14.8 H RBC 4.86 Hgb 15.5 Hct 45.2 MCV 93.0 MCH 31.9 MCHC 34.3 RDW 12.7 Plt Count 234 MPV 7.2 Prelim Diff (Auto) Slide review pending Neut % (Auto) 89.4 H Lymph % (Auto) 2.8 L Benson % (Auto) 7.2 Eos % (Auto) 0.1 Baso % (Auto) 0.5 Neut # (Auto) 13.2 H Lymph # (Auto) 0.4 L Benson # (Auto) 1.1 H Eos # (Auto) 0.0 Baso # (Auto) 0.1 WBC Differential Manual diff final Seg Neuts % (Manual) 75 H Band Neuts % (Manual) 13 H Lymphocytes % (Manual) 2 L Monocytes % (Manual) 7 Metamyelocytes % (Man) 3 H Abs Neuts (Manual) 13.5 H Differential Comment . Toxic Vacuolation Present H Platelet Estimate Normal Platelet Morphology Normal RBC Morphology Normal Sodium 132 L Potassium 3.8 Chloride 95 L Carbon Dioxide 22.9 Anion Gap 14 BUN 7 Creatinine 1.16 Estimated GFR 68 L Random Glucose 124 H Lactic Acid Calcium 9.4 Magnesium 1.9 Total Bilirubin 0.6 AST 47 H ALT 64 Alkaline Phosphatase 93 Total Protein 8.5 H Albumin 4.0 Lipase 66 L Serum Alcohol Less than 3 11/21/17 11/22/17 11/22/17 22:26 07:30 07:30 WBC 13.1 H RBC 4.60 Hgb 14.7 Hct 43.4 MCV 94.4 MCH 32.0 MCHC 33.8 RDW 12.9 Plt Count 218 MPV 7.5 Prelim Diff (Auto) Neut % (Auto) 85.8 H Lymph % (Auto) 4.9 L Benson % (Auto) 8.8 H Eos % (Auto) 0.1 Baso % (Auto) 0.4 Neut # (Auto) 11.3 H Lymph # (Auto) 0.6 L Benson # (Auto) 1.2 H Eos # (Auto) 0.0 Baso # (Auto) 0.0 WBC Differential . Seg Neuts % (Manual) Band Neuts % (Manual) Lymphocytes % (Manual) Monocytes % (Manual) Metamyelocytes % (Man) Abs Neuts (Manual) Differential Comment Auto diff final Toxic Vacuolation Platelet Estimate Platelet Morphology RBC Morphology Sodium 135 L Potassium 3.1 L Chloride 99 Carbon Dioxide 22.7 Anion Gap 13 BUN 7 Creatinine 1.14 Estimated GFR 69 L Random Glucose 116 H Lactic Acid 1.6 Calcium 8.9 Magnesium Total Bilirubin 0.6 AST 44 H ALT 65 Alkaline Phosphatase 86 Total Protein 7.9 D Albumin 3.6 Lipase Serum Alcohol 11/22/17 11/22/17 08:10 12:15 WBC RBC Hgb Hct MCV MCH MCHC RDW Plt Count MPV Prelim Diff (Auto) Neut % (Auto) Lymph % (Auto) Benson % (Auto) Eos % (Auto) Baso % (Auto) Neut # (Auto) Lymph # (Auto) Benson # (Auto) Eos # (Auto) Baso # (Auto) WBC Differential Seg Neuts % (Manual) Band Neuts % (Manual) Lymphocytes % (Manual) Monocytes % (Manual) Metamyelocytes % (Man) Abs Neuts (Manual) Differential Comment Toxic Vacuolation Platelet Estimate Platelet Morphology RBC Morphology Sodium Potassium Chloride Carbon Dioxide Anion Gap BUN Creatinine Estimated GFR Random Glucose Lactic Acid 6.2 H* 1.1 Calcium Magnesium Total Bilirubin AST ALT Alkaline Phosphatase Total Protein Albumin Lipase Serum Alcohol - Imaging Impressions Chest X-Ray 11/21/17 21:59 CONCLUSION: No acute cardiopulmonary process. Abdomen/Pelvis CT 11/22/17 00:01 CONCLUSION: 1. Moderate bladder distention. Although nonspecific, consider evaluation for bladder outlet obstruction or neurogenic bladder. 2. Mild hepatomegaly with diffusely decreased hepatic density consistent with hepatic steatosis or medical liver disease. 3. Normal appendix. Assessment and Plan - Plan Fever with rash (diffuse vesicular, maculopapular lesions). Concern for viral exanthem ? Disseminated herpes zoster, Acute retroviral syndrome, Primary syphilis. Neck pain and headache: rule out meningoencephalitis. Left ear lobe abscess received IV steroids and antibiotics. Nausea and Vomiting: ? meds related vs meningoencephalitis related. Hyponatremia? [employer] infection related vs metabolic. Lactic acidemia ? Sepsis in an immune compromised patient. recs Continue Zosyn IV Start Zyvox IV Start Acyclovir IV for possible VZV meningoencephalitis. LP orders entered. Patient explained the procedure briefly. MRI brain with contrast ordered to look for e/o meningoencephalitis and brain abscess. HIV screen patient consented Hepatitis profile check. Check RPR with reflex to FTA-ABs. facundo loredo RN Follow cultures Follow clinically.
[2017-11-22] MEDS ORDERED: SODIUM CHLOR 0.9% IV.SIG ONE (15:30)
[2017-11-22] MEDS ORDERED: ACYCLOVIR IV.SIG ONE (15:30)
[2017-11-22 16:23] LABS: Activated Partial Thrombo Time 33.5 sec (24.3-30.1); INR 1.3 Ratio; Prothrombin Time 13.2 sec (9.8-11.6)
[2017-11-22] MEDS ORDERED: Gadobutrol PF 10 MMOL/10 ML Vial (for RAD) IV.SIG ONE (18:12)
--- NOTE | 2017-11-22 18:39 | MR ---
EXAM DATE: 11/22/2017 6:27 PM EDT AGE/SEX: 47 years / Male INDICATIONS: Encephalitis. Headaches with back pain. CLINICAL DATA: This is the patient's initial encounter. Patient reports that signs and symptoms have been present for 2 days and indicates a pain score of 10/10. MEDICAL/SURGICAL HISTORY: Hypertension. None. COMPARISON: No prior exams available for comparison. TECHNIQUE: Multiplanar, multisequence examination of the brain was performed without and with 8 ml Ga davist (gadobutrol) contrast as a single exam dose. FINDINGS: Cerebrum: Ventricles are normal. No midline shift, mass lesion, hemorrhage or acute infarction. No extraaxial fluid collections are seen. The pituitary gland and suprasellar cistern are normal in con figuration. White Matter: No significant signal abnormalities are seen in the white matter. Posterior Fossa: The cerebellum and brainstem demonstrate no acute abnormality. The 4th ventricle is midline. The cerebellopontine angle is within normal limits. The cerebellar tonsils are normal in p osition. Diffusion Imaging: No areas of restricted diffusion are seen. Extracranial: There is mild mucoperiosteal thickening within the left maxillary, ethmoid, and spheno id sinuses. CONCLUSION: 1. No acute intracranial abnormality is identified. 2. Mild paranasal sinus mucoperiosteal thickening. Electronically signed by: Milton Neri MD 11/22/2017 6:38 PM EDT
--- NOTE | 2017-11-22 19:05 | P.RAD ---
Post Procedure Progress Note - Pre Procedure Diagnosis (1) Severe sepsis - Post Procedure Diagnosis (1) Severe sepsis - Procedure Information Supervising Radiologist: Viet Reynolds MD - Plan of Activity See PACS Report for procedural detail/treatment. Spinal Procedure Lumbar Puncture L3-L4 Fluid Removal (CCs): 16 Fluid Description: Clear Additional Detail: opening pressure 25
[2017-11-22 21:34] LABS: RBC on Tube 4 23 /mm3
[2017-11-22 21:35] LABS: RBC on Tube 1 8 /mm3
[2017-11-22 21:41] LABS: Lymphocytes, CSF 84 %; Monocytes,CSF 12 %; Neutrophils,CSF 2 %
[2017-11-23] MEDS: Enoxaparin Inj 40 MG/0.4 ML Syringe SQ SCH ×2 (00:35→12:35)
[2017-11-23] MEDS: Piperacil/Tazo 4.5 GM Premix 4.5 GM/100 ML BAG IV.SIG SCH ×5 (01:17→19:36)
[2017-11-23] MEDS: Sod Chloride 0.9% Inj 1,000 ML IV.CONT SCH ×4 (01:48→19:35)
[2017-11-23] MEDS: Folic Acid 1 MG Tablet PO SCH (08:10)
[2017-11-23] MEDS: Multivitamin/Minerals Therapeutic Tablet PO SCH (08:10)
--- NOTE | 2017-11-23 08:39 | P.PNIM ---
Subjective Interval history: f/u; sepsis ill looking- has some nausea and diarrhea. Tmax 102.4. d/w the RN. Physical Exam Vital signs: Vital Signs 11/22/17 11:32 11/22/17 12:00 11/22/17 16:27 Temperature 99.0 F Pulse Rate 123 H 79 129 H Respiratory Rate 16 16 20 Blood Pressure 119/73 130/70 142/86 H Pulse Oximetry 97 11/22/17 20:00 11/23/17 00:00 11/23/17 04:00 Temperature 99.2 F 98.1 F 98.0 F Pulse Rate 126 H 79 68 Respiratory Rate 21 16 14 Blood Pressure 140/85 130/70 Pulse Oximetry 98 97 96 Intake & Output 11/22/17 11/23/17 11/23/17 18:59 06:59 18:59 Intake Total 500 / 500 100 / 100 Output Total 1000 / 1000 Balance -1000 / -1000 500 / 500 100 / 100 Intake: IV 500 / 500 Zyvox 600 mg Premix 300 ML @ 300 / 300 300 mls/hr IV.SIG Q12H DAVID Rx#: [id number] Zosyn 4.5 GM Premix 4.5 gm In 200 / 200 100 ml @ 200 mls/hr IV.SIG Q6H DAVID Rx#:[id number] Oral 100 / 100 Output: Urine 1000 / 1000 Other: # Voids 1 2 Date of Last Bowel Movement 11/23/17 # Bowel Movements 3 - Constitutional no acute distress (but ill looking.) - Routine HEENT Exam Comments: left earlobe is swollen wit erythema. - Routine Respiratory Exam Present: CTA bilaterally - Routine Cardiovascular Exam Present: RRR - Routine Abdominal Exam Present: soft - Routine Extremities Exam Comments: no pedal edema. - Routine Neurological Exam Present: alert, oriented X3 Results - Labs CBC & Chem 7: 11/22/17 07:30 11/22/17 07:30 Laboratory Results - last 24 hr 11/22/17 11/22/17 11/22/17 07:30 07:30 08:10 WBC 13.1 H RBC 4.60 Hgb 14.7 Hct 43.4 MCV 94.4 MCH 32.0 MCHC 33.8 RDW 12.9 Plt Count 218 MPV 7.5 Neut % (Auto) 85.8 H Lymph % (Auto) 4.9 L [place] % (Auto) 8.8 H Eos % (Auto) 0.1 Baso % (Auto) 0.4 Neut # (Auto) 11.3 H Lymph # (Auto) 0.6 L [place] # (Auto) 1.2 H Eos # (Auto) 0.0 Baso # (Auto) 0.0 WBC Differential . Differential Comment Auto diff final PT INR APTT Sodium 135 L Potassium 3.1 L Chloride 99 Carbon Dioxide 22.7 Anion Gap 13 BUN 7 Creatinine 1.14 Estimated GFR 69 L POC Glucose Random Glucose 116 H Lactic Acid 6.2 H* Calcium 8.9 Total Bilirubin 0.6 AST 44 H ALT 65 Alkaline Phosphatase 86 Total Protein 7.9 D Albumin 3.6 CSF Volume (1) CSF Supernat Color (1) CSF Gross Blood (1) CSF WBC (1) CSF RBC (1) CSF Volume (2) CSF Supernat Color (2) CSF Gross Blood (2) CSF Volume (3) CSF Supernat Color (3) CSF Gross Blood (3) CSF Volume (4) CSF Supernat Color (4) CSF Gross Blood (4) CSF WBC (4) CSF RBC (4) CSF Neutrophils % CSF Lymphocytes % CSF Monocytes % CSF Histiocytes CSF Chloride CSF Glucose CSF Lactic Acid CSF Total Protein 11/22/17 11/22/17 11/22/17 12:15 14:55 14:55 WBC RBC Hgb Hct MCV MCH MCHC RDW Plt Count MPV Neut % (Auto) Lymph % (Auto) [place] % (Auto) Eos % (Auto) Baso % (Auto) Neut # (Auto) Lymph # (Auto) [place] # (Auto) Eos # (Auto) Baso # (Auto) WBC Differential Differential Comment PT INR APTT Sodium Potassium Chloride Carbon Dioxide Anion Gap BUN Creatinine Estimated GFR POC Glucose Random Glucose Lactic Acid 1.1 Calcium Total Bilirubin AST ALT Alkaline Phosphatase Total Protein Albumin CSF Volume (1) CSF Supernat Color (1) CSF Gross Blood (1) CSF WBC (1) CSF RBC (1) CSF Volume (2) CSF Supernat Color (2) CSF Gross Blood (2) CSF Volume (3) CSF Supernat Color (3) CSF Gross Blood (3) CSF Volume (4) CSF Supernat Color (4) CSF Gross Blood (4) CSF WBC (4) CSF RBC (4) CSF Neutrophils % CSF Lymphocytes % CSF Monocytes % CSF Histiocytes CSF Chloride 129 H CSF Glucose 73 CSF Lactic Acid CSF Total Protein 11/22/17 11/22/17 11/22/17 14:55 16:00 16:27 WBC RBC Hgb Hct MCV MCH MCHC RDW Plt Count MPV Neut % (Auto) Lymph % (Auto) [place] % (Auto) Eos % (Auto) Baso % (Auto) Neut # (Auto) Lymph # (Auto) [place] # (Auto) Eos # (Auto) Baso # (Auto) WBC Differential Differential Comment PT 13.2 H INR 1.3 APTT 33.5 H Sodium Potassium Chloride Carbon Dioxide Anion Gap BUN Creatinine Estimated GFR POC Glucose Random Glucose Lactic Acid Calcium Total Bilirubin AST ALT Alkaline Phosphatase Total Protein Albumin CSF Volume (1) CSF Supernat Color (1) CSF Gross Blood (1) CSF WBC (1) CSF RBC (1) CSF Volume (2) CSF Supernat Color (2) CSF Gross Blood (2) CSF Volume (3) CSF Supernat Color (3) CSF Gross Blood (3) CSF Volume (4) CSF Supernat Color (4) CSF Gross Blood (4) CSF WBC (4) CSF RBC (4) CSF Neutrophils % CSF Lymphocytes % CSF Monocytes % CSF Histiocytes CSF Chloride CSF Glucose CSF Lactic Acid 2.0 CSF Total Protein 40.4 11/22/17 11/22/17 11/22/17 18:55 21:12 23:05 WBC RBC Hgb Hct MCV MCH MCHC RDW Plt Count MPV Neut % (Auto) Lymph % (Auto) [place] % (Auto) Eos % (Auto) Baso % (Auto) Neut # (Auto) Lymph # (Auto) [place] # (Auto) Eos # (Auto) Baso # (Auto) WBC Differential Differential Comment PT INR APTT Sodium Potassium Chloride Carbon Dioxide Anion Gap BUN Creatinine Estimated GFR POC Glucose 113 H Random Glucose Lactic Acid Calcium Total Bilirubin AST ALT Alkaline Phosphatase Total Protein Albumin CSF Volume (1) 2.9 CSF Supernat Color (1) Clear CSF Gross Blood (1) 0 CSF WBC (1) 3 CSF RBC (1) 8 H CSF Volume (2) 2.9 CSF Supernat Color (2) Clear CSF Gross Blood (2) 0 CSF Volume (3) 2.3 CSF Supernat Color (3) Clear CSF Gross Blood (3) 0 CSF Volume (4) 2.0 CSF Supernat Color (4) Clear CSF Gross Blood (4) 0 CSF WBC (4) 5 CSF RBC (4) 23 H CSF Neutrophils % 2 CSF Lymphocytes % 84 CSF Monocytes % 12 CSF Histiocytes 2 CSF Chloride CSF Glucose CSF Lactic Acid CSF Total Protein 11/23/17 08:13 WBC RBC Hgb Hct MCV MCH MCHC RDW Plt Count MPV Neut % (Auto) Lymph % (Auto) [place] % (Auto) Eos % (Auto) Baso % (Auto) Neut # (Auto) Lymph # (Auto) [place] # (Auto) Eos # (Auto) Baso # (Auto) WBC Differential Differential Comment PT INR APTT Sodium Potassium Chloride Carbon Dioxide Anion Gap BUN Creatinine Estimated GFR POC Glucose 172 H Random Glucose Lactic Acid Calcium Total Bilirubin AST ALT Alkaline Phosphatase Total Protein Albumin CSF Volume (1) CSF Supernat Color (1) CSF Gross Blood (1) CSF WBC (1) CSF RBC (1) CSF Volume (2) CSF Supernat Color (2) CSF Gross Blood (2) CSF Volume (3) CSF Supernat Color (3) CSF Gross Blood (3) CSF Volume (4) CSF Supernat Color (4) CSF Gross Blood (4) CSF WBC (4) CSF RBC (4) CSF Neutrophils % CSF Lymphocytes % CSF Monocytes % CSF Histiocytes CSF Chloride CSF Glucose CSF Lactic Acid CSF Total Protein Microbiology 11/22/17 18:55 Lumbar Puncture Gram Stain - Final - Imaging Impressions Head MRI 11/22/17 00:00 CONCLUSION: 1. No acute intracranial abnormality is identified. 2. Mild paranasal sinus mucoperiosteal thickening. Assessment and Plan - Assessment (1) Severe sepsis Code(s): A41.9 - Sepsis, unspecified organism; R65.20 - Severe sepsis without septic shock Status: Acute (2) Abscess of left earlobe Code(s): H60.02 - Abscess of left external ear Status: Acute (3) Alcohol withdrawal Code(s): F10.239 - Alcohol dependence with withdrawal, unspecified Status: Acute - Plan Severe Sepsis (Tachycardic, leukocytosis, Lactic acid 6.2, Suspected infection left earlobe) on presentation. Left earlobe abscess possible Varicella Zoster infection (Chicken Pox) Possible virus encephalopathy - on Zosyn and Zyvox -s/p LP- will follow the fluid studies and culture -will obtain blood cultures -continue supportive care with IV fluid, antiemetics and antipyretics Diarrhea - check the stool for c-diff Alcohol abuse - [facility] protocol - Thiamine IV, Folic acid PO. Mild Acute kidney injury Mild hyponatremia Hypokalemia - continue IV fluid -monitor the renal function and electrolytes. Discharge Planning: patient is still ill-looking and febrile- w/u in progress- pending clinical improvement and ID f/u/ recommendations.
[2017-11-23] MEDS: Acetaminophen 325 MG Tablet PO PRN (08:50)
[2017-11-23] MEDS: LORazepam 1 MG Tablet PO PRN (08:50)
[2017-11-23 09:09] LABS: Hepatitits B Surface Antigen Nonreactive (Nonreactive)
[2017-11-23 09:23] LABS: Hepatitis A IgM Antibody Nonreactive (Nonreactive)
--- NOTE | 2017-11-23 09:26 | IR ---
EXAM DATE: 11/22/2017 7:15 PM EDT AGE/SEX: 47 years / Male INDICATIONS: Patient with possible meningoencephalitis. CLINICAL DATA: This is the patient's initial encounter. Patient reports that signs and symptoms have been present for 1 day and indicates a pain score of 9/10. MEDICAL/SURGICAL HISTORY: . Hypertension . None COMPARISON: No prior exams available for comparison. FLUORO TIME (min): 0.37 IMAGE SERIES: 1 ACCESS SITE: L3-4 SEDATION TIME (min): 0 LUMBAR PUNCTURE TIME: 1855 hours CONTRAST (cc): 0 FLUID: Total volume of 16 cc of clear fluid was removed. Fluid was sent to lab for ordered studies. . . PROCEDURE: 1. Fluoroscopic guided lumbar puncture. The risks, benefits and alternatives to the procedure were explained and verbal and written consent w as obtained. The site was prepped in sterile fashion. Full sterile technique was used, including ca p, mask, sterile gloves and gown and a large sterile sheet. Hand hygiene and 2% chlorhexidine and/or betadine/alcohol prep was utilized per protocol for cutaneous antisepsis. The skin and subcutaneous tissues were infiltrated with local anesthetic solution. With fluoroscopic guidance the lumbar thecal sac was punctured at the level above. The fluid describ ed above was removed without difficulty. The patient tolerated the procedure well and there were no complications. CONCLUSION: 1. Uncomplicated fluoroscopically guided lumbar puncture. Electronically signed by: Viet Reynolds MD 11/23/2017 9:24 AM EDT
[2017-11-23] MEDS: Thiamine Inj 100 MG in Sodium Chlor 0.9% Inj 100 ML IV.SIG SCH (10:03)
[2017-11-23 13:06] LABS: Hematocrit 39.1 % (39.0-51.0); Hemoglobin 13.3 gm/dL (13.0-17.0); Mean Corpuscular Volume 94.1 fL (80.0-100.0); Mean Platelet Volume 7.5 fL (7.0-11.0); Platelet Count 220 th/mm3 (150-450); Red Blood Count 4.15 mil/mm3 (4.50-5.90); Red Cell Distribution Width 12.8 % (11.6-17.2); White Blood Count 12.9 th/mm3 (4.0-11.0)
[2017-11-23 13:33] LABS: Anion Gap 8 meq/L (5-15); Blood Urea Nitrogen 7 mg/dL (7-18); Calcium 8.4 mg/dL (8.5-10.1); Carbon Dioxide 26.9 meq/L (21.0-32.0); Chloride 99 meq/L (98-107); Glomerular Filtration Rate Greater Than 89 mL/min (>89); Glucose,Random 134 mg/dL (74-106); Potassium 3.1 meq/L (3.5-5.1); Sodium 134 meq/L (136-145)
--- NOTE | 2017-11-23 20:04 | P.PNID ---
Subjective Remarks: Mr. Chen is a 47-year-old male with past medical history of hypertension presents to the emergency department on November 21, 2017 generalized weakness, left ear pain as well as nausea and vomiting. Patient went to the urgent care about 10 days back due to left earlobe pain and lesion. He apparently was given several doses of IV steroids as well as a prescription of Keflex and Bactrim. His symptoms did not improve and patient started developing fever and diaphoresis. Due to extreme weakness and persistent nausea and vomiting patient presented to the hospital not so much for the left earlobe. Regarding his nausea and vomiting patient denies any history of prior gastritis. Patient does report drinking several beers up to 5 beers daily for many years. Patient denies taking any [id number] pain medications recently. The only other medications he has been on his Keflex and Bactrim. Patient went to work yesterday in the middle of his work he felt extremely weak and fatigued as he has not been eating well for the last few days. At the time of my evaluation patient was in the emergency department. Upon questioning patient's right reported that they have noticed lesions all over his back, chest abdomen as well as upper and lower extremities since he got into the hospital. Patient reports prior history of chickenpox. Patient denies any prior known history of HIV and hepatitis or any other immune compromised status. Patient consented to being tested for HIV as well as hepatitis. 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 He denies any history of trauma or any sharp needles having been an inciting agent. Pertinent positives and negatives: Patient reports a headache but no visual changes. Patient reports pain in the neck especially on movement. Infectious diseases consulted for evaluation and management of left earlobe abscess. Overnight events reviewed Tmax 102.4 Maculopapular, vesicular rash with various staging of crusting and ages noted. Some appear to be in confluence today. Diarrhea Cdiff negative. CT abdomen with retention of urine. Overall looks better in terms of level of alertness today than yday. Does not remember talking to me yday. 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 Antibiotics: Zosyn IV Zyvox IV Acyclovir IV Lines: Lines ok Past Medical History: Ear lobe abscess Allergies/Adverse Reactions: Allergies caffeine Adverse Reaction (Verified 11/21/17 19:43) Tachycardia Objective Vital Signs 11/23/17 00:00 11/23/17 04:00 11/23/17 08:00 Temperature 98.1 F 98.0 F 102.4 F H Pulse Rate 79 68 121 H Respiratory Rate 16 14 20 Blood Pressure 130/70 114/82 Pulse Oximetry 97 96 96 11/23/17 09:00 11/23/17 12:00 11/23/17 12:25 Temperature 98 F Pulse Rate 122 H 119 H 113 H Respiratory Rate 18 Blood Pressure 112/81 Pulse Oximetry 98 11/23/17 16:00 Temperature 98.8 F Pulse Rate 86 Respiratory Rate 20 Blood Pressure 114/72 Pulse Oximetry 97 Intake & Output 11/23/17 11/23/17 11/24/17 06:59 18:59 06:59 Intake Total 500 / 500 1501 / 1501 300 / 300 Balance 500 / 500 1501 / 1501 300 / 300 Intake: IV 500 / 500 1401 / 1401 300 / 300 NS Inj 1,000 ML @ 125 mls/hr IV 1000 / 1000 .CONT .Q8H DAVID Rx#:[id number] Zyvox 600 mg Premix 300 ML @ 300 / 300 300 / 300 300 / 300 300 mls/hr IV.SIG Q12H DAVID Rx#: [id number] Zosyn 4.5 GM Premix 4.5 gm In 200 / 200 100 ml @ 200 mls/hr IV.SIG Q6H DAVID Rx#:[id number] Thiamine Inj 100 MG In NS Inj 101 / 101 100 ML @ 100 mls/hr IV.SIG DAILY DAVID Rx#:[id number] Oral 100 / 100 Other: # Voids 2 2 Date of Last Bowel Movement 11/23/17 # Bowel Movements 3 11/23/17 17:00 Blood - Peripheral Aerobic Blood Culture - Pending 11/23/17 17:00 Blood - Peripheral Anaerobic Blood Culture - Pending 11/23/17 16:45 Blood - Peripheral Aerobic Blood Culture - Pending 11/23/17 16:45 Blood - Peripheral Anaerobic Blood Culture - Pending 11/22/17 18:55 Fluid - Other Acid Fast Bacilli Smear - Final No acid fast bacilli seen 11/22/17 18:55 Fluid - Other Mycobacterial Culture - Pending 11/22/17 18:55 Cerebral Spinal Fluid - Lumbar Puncture Fungal Smear - Final No fungal elements seen 11/22/17 18:55 Cerebral Spinal Fluid - Lumbar Puncture Fungal Culture - Pending 11/22/17 18:55 Lumbar Puncture Gram Stain - Final 11/22/17 18:55 Lumbar Puncture CSF Culture - Preliminary No growth in 24 hours Lab - Hematology Results 11/21/17 11/22/17 11/23/17 22:25 07:30 12:15 WBC 14.8 H 13.1 H 12.9 H RBC 4.86 4.60 4.15 L Hgb 15.5 14.7 13.3 Hct 45.2 43.4 39.1 MCV 93.0 94.4 94.1 MCH 31.9 32.0 32.0 MCHC 34.3 33.8 34.0 RDW 12.7 12.9 12.8 Plt Count 234 218 220 MPV 7.2 7.5 7.5 Prelim Diff (Auto) Slide review pending Neut % (Auto) 89.4 H 85.8 H Lymph % (Auto) 2.8 L 4.9 L [place] % (Auto) 7.2 8.8 H Eos % (Auto) 0.1 0.1 Baso % (Auto) 0.5 0.4 Neut # (Auto) 13.2 H 11.3 H Lymph # (Auto) 0.4 L 0.6 L [place] # (Auto) 1.1 H 1.2 H Eos # (Auto) 0.0 0.0 Baso # (Auto) 0.1 0.0 WBC Differential Manual diff final . Seg Neuts % (Manual) 75 H Band Neuts % (Manual) 13 H Lymphocytes % (Manual) 2 L Monocytes % (Manual) 7 Metamyelocytes % (Man) 3 H Abs Neuts (Manual) 13.5 H Differential Comment . Auto diff final Toxic Vacuolation Present H Platelet Estimate Normal Platelet Morphology Normal RBC Morphology Normal Lab - Chemistry Results 11/21/17 11/21/17 11/22/17 22:25 22:26 07:30 Sodium 132 L 135 L Potassium 3.8 3.1 L Chloride 95 L 99 Carbon Dioxide 22.9 22.7 Anion Gap 14 13 BUN 7 7 Creatinine 1.16 1.14 Estimated GFR 68 L 69 L POC Glucose Random Glucose 124 H 116 H Lactic Acid 1.6 Calcium 9.4 8.9 Magnesium 1.9 Total Bilirubin 0.6 0.6 AST 47 H 44 H ALT 64 65 Alkaline Phosphatase 93 86 Total Protein 8.5 H 7.9 D Albumin 4.0 3.6 Lipase 66 L 11/22/17 11/22/17 11/22/17 08:10 12:15 23:05 Sodium Potassium Chloride Carbon Dioxide Anion Gap BUN Creatinine Estimated GFR POC Glucose 113 H Random Glucose Lactic Acid 6.2 H* 1.1 Calcium Magnesium Total Bilirubin AST ALT Alkaline Phosphatase Total Protein Albumin Lipase 11/23/17 11/23/17 11/23/17 08:13 12:15 12:17 Sodium 134 L Potassium 3.1 L Chloride 99 Carbon Dioxide 26.9 Anion Gap 8 BUN 7 Creatinine 0.91 Estimated GFR Greater than 89 POC Glucose 172 H 141 H Random Glucose 134 H Lactic Acid Calcium 8.4 L Magnesium Total Bilirubin AST ALT Alkaline Phosphatase Total Protein Albumin Lipase 11/23/17 17:10 Sodium Potassium Chloride Carbon Dioxide Anion Gap BUN Creatinine Estimated GFR POC Glucose 132 H Random Glucose Lactic Acid Calcium Magnesium Total Bilirubin AST ALT Alkaline Phosphatase Total Protein Albumin Lipase Imaging: ITS Impressions Chest X-Ray 11/21/17 21:59 CONCLUSION: No acute cardiopulmonary process. Head MRI 11/22/17 00:00 CONCLUSION: 1. No acute intracranial abnormality is identified. 2. Mild paranasal sinus mucoperiosteal thickening. Lumbar Puncture Fluoroscopy 11/22/17 00:00 CONCLUSION: 1. Uncomplicated fluoroscopically guided lumbar puncture. Abdomen/Pelvis CT 11/22/17 00:01 CONCLUSION: 1. Moderate bladder distention. Although nonspecific, consider evaluation for bladder outlet obstruction or neurogenic bladder. 2. Mild hepatomegaly with diffusely decreased hepatic density consistent with hepatic steatosis or medical liver disease. 3. Normal appendix. Physical Exam: GENERAL: Well-nourished well-developed, not in acute distress SKIN: Left earlobe with area of fluctuance, erythema as well as tenderness noted. Some areas of darkening of the skin over this left earlobe noted. No discharge from the ear noted. Rest of the pain of the year with no erythema tenderness. Multiple maculopapular lesions, vesicular lesions noted all over the patient's body in various stages of presentation. The one on the left upper extremity appears to be scabbing. HEAD: Atraumatic. Normocephalic. No temporal or scalp tenderness. EYES: Pupils equal round and reactive. Scleral icterus. No injection or drainage. No petechia ENT: Nothing abnormal detected. NECK: Trachea midline. Pain on flexion of the neck. No obvious neck stiffness noted. CARDIOVASCULAR: HS audible. RESPIRATORY: Clear to auscultation bilaterally. GASTROINTESTINAL: Abdomen soft nontender. MUSCULOSKELETAL: Extremities without clubbing, cyanosis. NEUROLOGICAL: Alert oriented 3. Nonfocal. Psych cooperative IV line sites ok. Assessment and Plan - Plan Fever with rash (diffuse vesicular, maculopapular lesions). Concern for viral exanthem ? Disseminated herpes zoster, Acute retroviral syndrome, Primary syphilis. Neck pain and headache: rule out meningoencephalitis. Left ear lobe abscess received IV steroids and antibiotics. Nausea and Vomiting: ? meds related vs meningoencephalitis related. Hyponatremia? [place] infection related vs metabolic. Lactic acidemia ? Sepsis in an immune compromised patient. recs Continue Zosyn IV Continue Zyvox IV Continue Acyclovir IV for possible VZV meningoencephalitis. Continue airborne isolation. 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 He did not immerse his body parts in brackish water. He has no bullous or hemorrhagic bullae at present time but will start Doxy IV pending further evaluation by ID MD covering for me in am to rule out Vibrio Vulnificus infection. Follow blood cultures. Follow VZV workup Ordered fungal blood cultures. MRI brain with no abscess or signs of infection. LP normal Protein, WBC low. HIV and Hepatitis negative. Follow HIV PCR to r/o acute retroviral syndrome. Follow I/O if concerns for retention of urine consider Spine imaging with MRI to r/o epidural abscess Follow 2D ECHO. RPR negative. facundo loredo RN Follow cultures Follow clinically. I will be OOT from 11/24/2017. Other ID MDs covering for me. Please call this weekend to see this patient.
[2017-11-23] MEDS: Doxycycline Inj 200 MG in Sodium Chlor 0.9% Inj 250 ML IV.SIG SCH (23:54)
[2017-11-24] MEDS: Piperacil/Tazo 4.5 GM Premix 4.5 GM/100 ML BAG IV.SIG SCH ×5 (02:43→21:07)
[2017-11-24] MEDS: Sod Chloride 0.9% Inj 1,000 ML IV.CONT SCH ×3 (02:44→16:52)
[2017-11-24] MEDS: Acetaminophen 325 MG Tablet PO PRN ×2 (02:45→10:12)
[2017-11-24] MEDS: LORazepam 1 MG Tablet PO PRN (02:45)
[2017-11-24] MEDS: Multivitamin/Minerals Therapeutic Tablet PO SCH (09:08)
[2017-11-24] MEDS: Folic Acid 1 MG Tablet PO SCH (09:09)
[2017-11-24] MEDS: Doxycycline Inj 200 MG in Sodium Chlor 0.9% Inj 250 ML IV.SIG SCH ×2 (10:11→21:13)
[2017-11-24] MEDS: Enoxaparin Inj 40 MG/0.4 ML Syringe SQ SCH (11:13)
[2017-11-24] MEDS: Thiamine Inj 100 MG in Sodium Chlor 0.9% Inj 100 ML IV.SIG SCH (11:13)
--- NOTE | 2017-11-24 16:29 | P.PNIM ---
Subjective Interval history: Fever is still present. Patient has no new complaints. No significant improvements thus far. He reports that he has no prior history of penicillin allergy. His daughter has a history of a Bactrim allergy with red spots. He has a history of allergic reaction to steroid injections which occurred about 15 years ago, he has not had steroids since. He expresses that he knows that he received Bactrim and amoxicillin as treatments. He was also receiving a shot which she feels was antibiotics but is uncertain. Other than his left ear cellulitis systemic symptoms came after oral treatments and shot treatment started. Physical Exam Vital signs: Vital Signs 11/23/17 20:00 11/23/17 23:47 11/24/17 04:00 Temperature 97.8 F 98.0 F 98.1 F Pulse Rate 69 64 60 Respiratory Rate 16 14 14 Blood Pressure 120/67 118/57 L 110/60 Pulse Oximetry 95 95 96 11/24/17 08:00 11/24/17 12:00 Temperature 99 F 101 F H Pulse Rate 122 H 128 H Respiratory Rate 16 16 Blood Pressure 101/66 120/72 Pulse Oximetry 92 L 92 L Intake & Output 11/23/17 11/24/17 11/24/17 18:59 06:59 18:59 Intake Total 1501 / 1501 2190 / 2190 100 / 100 Balance 1501 / 1501 2190 / 2190 100 / 100 Weight 83 kg Intake: IV 1401 / 1401 1750 / 1750 100 / 100 NS Inj 1,000 ML @ 125 mls/hr IV 1000 / 1000 1000 / 1000 .CONT .Q8H DAVID Rx#:[id number] Doxy 100 Inj 200 MG In NS Inj 250 / 250 250 ML @ 125 mls/hr IV.SIG Q12H DAVID Rx#:[id number] Zyvox 600 mg Premix 300 ML @ 300 / 300 300 / 300 300 mls/hr IV.SIG Q12H DAVID Rx#: [id number] Zosyn 4.5 GM Premix 4.5 gm In 200 / 200 100 / 100 100 ml @ 200 mls/hr IV.SIG Q6H DAVID Rx#:[id number] Thiamine Inj 100 MG In NS Inj 101 / 101 100 ML @ 100 mls/hr IV.SIG DAILY DAVID Rx#:[id number] Oral 100 / 100 440 / 440 Other: # Voids 2 3 Date of Last Bowel Movement 11/23/17 # Bowel Movements 1 # [place] 1 Narrative: GENERAL: NAD, A&Ox3 HEAD: Normocephalic. NECK: Supple, trachea midline. No lymphadenopathy. EYES: No scleral icterus. No injection or drainage. CARDIOVASCULAR: Regular rate and rhythm without murmurs, gallops, or rubs. RESPIRATORY: Breath sounds equal bilaterally. No accessory muscle use. GASTROINTESTINAL: Abdomen soft, non-tender, nondistended. MUSCULOSKELETAL: No cyanosis, or edema. Follicular rash including patient's face, neck, shoulders, back, upper chest, and arms. No significant involvement of rash at buttocks, genitals, and legs. Healing cellulitis left ear. SKIN: Warm and dry. NEURO: No focal neurological deficits. Results - Labs CBC & Chem 7: 11/23/17 12:15 11/23/17 12:15 Laboratory Results - last 24 hr 11/22/17 11/23/17 11/23/17 15:00 17:10 21:42 POC Glucose 132 H 124 H CSF Herpes I DNA (PCR) Negative CSF Herpes II DNA (PCR) Negative 11/24/17 07:45 POC Glucose 102 CSF Herpes I DNA (PCR) CSF Herpes II DNA (PCR) Microbiology 11/23/17 17:00 Blood - Peripheral Aerobic Blood Culture - Preliminary No growth in 1 day 11/23/17 17:00 Blood - Peripheral Anaerobic Blood Culture - Preliminary No growth in 1 day 11/23/17 16:45 Blood - Peripheral Aerobic Blood Culture - Preliminary No growth in 1 day 11/23/17 16:45 Blood - Peripheral Anaerobic Blood Culture - Preliminary No growth in 1 day 11/22/17 18:55 Lumbar Puncture Gram Stain - Final 11/22/17 18:55 Lumbar Puncture CSF Culture - Preliminary No growth in 48 hours 11/22/17 18:55 Fluid - Other Acid Fast Bacilli Smear - Final No acid fast bacilli seen 11/22/17 18:55 Cerebral Spinal Fluid - Lumbar Puncture Fungal Smear - Final No fungal elements seen Assessment and Plan - Assessment (1) Severe sepsis Code(s): A41.9 - Sepsis, unspecified organism; R65.20 - Severe sepsis without septic shock Status: Acute (2) Abscess of left earlobe Code(s): H60.02 - Abscess of left external ear Status: Acute (3) Alcohol withdrawal Code(s): F10.239 - Alcohol dependence with withdrawal, unspecified Status: Acute - Plan 47-year-old male admitted secondary to acute skin reaction with fever and tachycardia Fever of unknown origin Patient meets sepsis criteria at time of admit if infection present This could also represent medication reaction or viral exanthem Continue Zosyn Continue Zyvox Follow lumbar puncture results Diarrhea C. difficile screen pending Imodium History of alcohol abuse Librium started CIWA protocol Continue thiamine, folic acid, and multivitamin Kidney injury Hyponatremia Hypokalemia Continue IV hydration Replace electrolytes as needed
[2017-11-24] MEDS: Loperamide 2 MG Capsule PO PRN (16:47)
--- NOTE | 2017-11-24 19:14 | P.PNID ---
Subjective Remarks: ID coverage. Background information: Mr. Chen is a 47-year-old male with past medical history of hypertension presents to the emergency department on November 21, 2017 generalized weakness, left ear pain as well as nausea and vomiting. Patient went to the urgent care about 10 days back due to left earlobe pain and lesion. He apparently was given several doses of IV steroids as well as a prescription of Keflex and Bactrim. His symptoms did not improve and patient started developing fever and diaphoresis. Due to extreme weakness and persistent nausea and vomiting patient presented to the hospital not so much for the left earlobe. Regarding his nausea and vomiting patient denies any history of prior gastritis. Patient does report drinking several beers up to 5 beers daily for many years. Patient denies taking any ocmp-vmy-khaphwp pain medications recently. The only other medications he has been on his Keflex and Bactrim. He developed fatigue at work. Patient noticed lesions all over his back, chest abdomen as well as upper and lower extremities since he got into the hospital. Patient reports prior history of chickenpox. Patient denies any prior known history of HIV and hepatitis or any other immune compromised status. Patient consented to being tested for HIV as well as hepatitis. 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 He denies any history of trauma or any sharp needles having been an inciting agent. 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 Infectious diseases consulted for evaluation and management of left earlobe abscess. Patient continues to feel weak all he says is a little better than yesterday. Denies chills. Denies nausea. Notes loose stools. Maculopapular, vesicular rash with various staging of crusting and ages noted. Some appear to be in confluence today. Diarrhea Cdiff negative. Awake and alert. Notes mild headache at the vertex of the head. Antibiotics: Zosyn IV Zyvox IV Acyclovir IV Lines: Lines ok Past Medical History: Ear lobe abscess Allergies/Adverse Reactions: Allergies caffeine Adverse Reaction (Verified 11/21/17 19:43) Tachycardia Objective Vital Signs 11/23/17 20:00 11/23/17 23:47 11/24/17 04:00 Temperature 97.8 F 98.0 F 98.1 F Pulse Rate 69 64 60 Respiratory Rate 16 14 14 Blood Pressure 120/67 118/57 L 110/60 Pulse Oximetry 95 95 96 11/24/17 08:00 11/24/17 12:00 Temperature 99 F 101 F H Pulse Rate 122 H 128 H Respiratory Rate 16 16 Blood Pressure 101/66 120/72 Pulse Oximetry 92 L 92 L Intake & Output 11/24/17 11/24/17 11/25/17 06:59 18:59 06:59 Intake Total 2490 / 2490 1751 / 1751 Balance 2490 / 2490 1751 / 1751 Weight 83 kg Intake: IV 2050 / 2050 1751 / 1751 NS Inj 1,000 ML @ 125 mls/hr IV 1000 / 1000 1000 / 1000 .CONT .Q8H DAVID Rx#:[id number] Doxy 100 Inj 200 MG In NS Inj 250 / 250 250 / 250 250 ML @ 125 mls/hr IV.SIG Q12H DAVID Rx#:[id number] Zyvox 600 mg Premix 300 ML @ 600 / 600 300 / 300 300 mls/hr IV.SIG Q12H DAVID Rx#: [id number] Zosyn 4.5 GM Premix 4.5 gm In 200 / 200 100 / 100 100 ml @ 200 mls/hr IV.SIG Q6H DAVID Rx#:[id number] Thiamine Inj 100 MG In NS Inj 101 / 101 100 ML @ 100 mls/hr IV.SIG DAILY DAVID Rx#:[id number] Oral 440 / 440 Other: # Voids 3 Date of Last Bowel Movement 11/23/17 # Bowel Movements 1 # Emeses 1 11/23/17 17:00 Blood - Peripheral Aerobic Blood Culture - Preliminary No growth in 1 day 11/23/17 17:00 Blood - Peripheral Anaerobic Blood Culture - Preliminary No growth in 1 day 11/23/17 16:45 Blood - Peripheral Aerobic Blood Culture - Preliminary No growth in 1 day 11/23/17 16:45 Blood - Peripheral Anaerobic Blood Culture - Preliminary No growth in 1 day 11/22/17 18:55 Lumbar Puncture Gram Stain - Final 11/22/17 18:55 Lumbar Puncture CSF Culture - Preliminary No growth in 48 hours 11/24/17 04:27 Blood - Peripheral Blood Fungal Culture - Pending 11/24/17 04:27 Blood - Peripheral Blood Fungal Culture - Pending 11/22/17 18:55 Fluid - Other Acid Fast Bacilli Smear - Final No acid fast bacilli seen 11/22/17 18:55 Fluid - Other Mycobacterial Culture - Pending 11/22/17 18:55 Cerebral Spinal Fluid - Lumbar Puncture Fungal Smear - Final No fungal elements seen 11/22/17 18:55 Cerebral Spinal Fluid - Lumbar Puncture Fungal Culture - Pending Lab - Hematology Results 11/23/17 12:15 WBC 12.9 H RBC 4.15 L Hgb 13.3 Hct 39.1 MCV 94.1 MCH 32.0 MCHC 34.0 RDW 12.8 Plt Count 220 MPV 7.5 Lab - Chemistry Results 11/22/17 11/23/17 11/23/17 23:05 08:13 12:15 Sodium 134 L Potassium 3.1 L Chloride 99 Carbon Dioxide 26.9 Anion Gap 8 BUN 7 Creatinine 0.91 Estimated GFR Greater than 89 POC Glucose 113 H 172 H Random Glucose 134 H Calcium 8.4 L 11/23/17 11/23/17 11/23/17 12:17 17:10 21:42 Sodium Potassium Chloride Carbon Dioxide Anion Gap BUN Creatinine Estimated GFR POC Glucose 141 H 132 H 124 H Random Glucose Calcium 11/24/17 11/24/17 07:45 17:38 Sodium Potassium Chloride Carbon Dioxide Anion Gap BUN Creatinine Estimated GFR POC Glucose 102 137 H Random Glucose Calcium Imaging: ITS Impressions Chest X-Ray 11/21/17 21:59 CONCLUSION: No acute cardiopulmonary process. Head MRI 11/22/17 00:00 CONCLUSION: 1. No acute intracranial abnormality is identified. 2. Mild paranasal sinus mucoperiosteal thickening. Lumbar Puncture Fluoroscopy 11/22/17 00:00 CONCLUSION: 1. Uncomplicated fluoroscopically guided lumbar puncture. Abdomen/Pelvis CT 11/22/17 00:01 CONCLUSION: 1. Moderate bladder distention. Although nonspecific, consider evaluation for bladder outlet obstruction or neurogenic bladder. 2. Mild hepatomegaly with diffusely decreased hepatic density consistent with hepatic steatosis or medical liver disease. 3. Normal appendix. Physical Exam: GENERAL: Alert and oriented, no acute distress. HEENT: Pupils reactive to light. Extraocular movements intact. No icterus. Mild conjunctival erythema on the right. Mild erythema around the eyelids without swelling NECK: Supple without adenopathy. No swelling. LUNGS: Clear to auscultation. HEART: Regular rate and rhythm without murmurs rubs or gallops. ABDOMEN: Positive bowel sounds, soft, nontender. EXTREMITIES: Round maculopapular erythematous lesions particular at the back of the neck anterior chest forehead arms back. 2 lesions at the right wrist which have slightly different characteristic is erythematous and linea. One lesion at the left forearm has a ghanshyam petal appearance with tiny central scab SKIN: Maculopapular rash NEUROLOGIC: Nonfocal PSYCH: Calm and cooperative. Assessment and Plan - Plan Fever with rash (diffuse vesicular, maculopapular lesions). Concern for viral exanthem ? Disseminated herpes zoster, Acute retroviral syndrome, Primary syphilis. Neck pain and headache: rule out meningoencephalitis. Left ear lobe abscess received IV steroids and antibiotics. Nausea and Vomiting: ? meds related vs meningoencephalitis related. Hyponatremia? SHIP KEEPER infection related vs metabolic. Lactic acidemia ? Sepsis in an immune compromised patient. recs Continue Zosyn IV Continue Zyvox IV Continue Acyclovir IV for possible VZV meningoencephalitis. Continue airborne isolation. 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 He did not immerse his body parts in brackish water. He has no bullous or hemorrhagic bullae at present time but will start Doxy IV pending further evaluation by [facility] covering for me in am to rule out Vibrio Vulnificus infection. Follow blood cultures. Follow VZV workup Ordered fungal blood cultures. MRI brain with no abscess or signs of infection. LP normal Protein, WBC low. HIV and Hepatitis negative. Follow HIV PCR to r/o acute retroviral syndrome. Follow I/O if concerns for retention of urine consider Spine imaging with MRI to r/o epidural abscess Follow 2D ECHO. RPR negative. facundo Van. Follow cultures Follow clinically.
[2017-11-25] MEDS: Aluminum/Magnesium/Simethacone Susp 30 ML UDC PO PRN ×3 (00:21→17:49)
[2017-11-25] MEDS: Famotidine 20 MG Tablet PO SCH ×3 (00:21→21:36)
[2017-11-25] MEDS: Sod Chloride 0.9% Inj 1,000 ML IV.CONT SCH ×3 (00:21→17:00)
[2017-11-25] MEDS: Piperacil/Tazo 4.5 GM Premix 4.5 GM/100 ML BAG IV.SIG SCH ×4 (02:08→21:36)
[2017-11-25] MEDS: Acetaminophen 325 MG Tablet PO PRN ×2 (05:11→17:49)
[2017-11-25 08:25] LABS: Baso % (Auto) 0.5 % (0.0-2.0); Eos # (Auto) 0.3 th/mm3 (0.0-0.4); Eos % (Auto) 3.3 % (0.0-4.0); Lymph # (Auto) 1.4 th/mm3 (1.0-4.8); Mean Corpuscular HGB Conc 34.3 % (32.0-36.0); Mean Corpuscular Hemoglobin 32.4 pg (27.0-34.0); Mean Corpuscular Volume 94.4 fL (80.0-100.0); Mean Platelet Volume 7.2 fL (7.0-11.0); Mono # (Auto) 0.7 th/mm3 (0.0-0.9); Mono % (Auto) 7.3 % (0.0-8.0); Neut % (Auto) 73.9 % (16.0-70.0); Platelet Count 299 th/mm3 (150-450); Red Cell Distribution Width 13.1 % (11.6-17.2); White Blood Count 9.5 th/mm3 (4.0-11.0)
[2017-11-25] MEDS: Loperamide 2 MG Capsule PO PRN (08:36)
[2017-11-25] MEDS: Folic Acid 1 MG Tablet PO SCH (08:36)
[2017-11-25] MEDS: Multivitamin/Minerals Therapeutic Tablet PO SCH (08:36)
[2017-11-25 08:57] LABS: Alanine Aminotransferase 153 U/L (12-78); Albumin 2.3 g/dL (3.4-5.0); Alkaline Phosphatase 165 U/L (45-117); Anion Gap 13 meq/L (5-15); Aspartate Aminotransferase 67 U/L (15-37); Blood Urea Nitrogen 7 mg/dL (7-18); Calcium 8.5 mg/dL (8.5-10.1); Carbon Dioxide 22.4 meq/L (21.0-32.0); Chloride 105 meq/L (98-107); Glomerular Filtration Rate Greater Than 89 mL/min (>89); Glucose,Random 133 mg/dL (74-106); Sodium 140 meq/L (136-145); Total Protein 6.7 g/dL (6.4-8.2)
[2017-11-25 09:00] LABS: Potassium 2.9 meq/L (3.5-5.1)
[2017-11-25] MEDS: Doxycycline Inj 200 MG in Sodium Chlor 0.9% Inj 250 ML IV.SIG SCH ×2 (09:56→21:34)
[2017-11-25] MEDS ORDERED: Loratadine 10 MG Tablet PO ONE (12:00)
--- NOTE | 2017-11-25 12:47 | P.PNIM ---
Subjective Interval history: Slight improvements through time. Intermittent tachycardia still occurs. Etiology for his tachycardia could be related to his cutaneous condition. ESR and CRP show significant elevations which might suggest autoimmunity versus allergic reaction rather than viral versus bacterial causes. I called the patient's urgent care and he had been receiving amoxicillin and Bactrim as previously known and in addition he had been receiving Rocephin injections and was prescribed Flagyl of which he did not take any treatment prior to coming to the hospital. Physical Exam Vital signs: Vital Signs 11/24/17 16:00 11/24/17 20:00 11/24/17 22:00 Temperature 99.3 F 97.2 F L Pulse Rate 122 H 131 H 113 H Respiratory Rate 16 21 Blood Pressure 110/72 108/71 Pulse Oximetry 95 94 L 11/25/17 00:00 11/25/17 04:00 11/25/17 06:00 Temperature 98.2 F 98.4 F Pulse Rate 117 H 115 H 100 H Respiratory Rate 18 18 Blood Pressure 112/68 110/66 Pulse Oximetry 93 L 92 L 11/25/17 08:00 Temperature 98.8 F Pulse Rate 117 H Respiratory Rate 17 Blood Pressure 112/78 Pulse Oximetry 93 L Intake & Output 11/24/17 11/25/17 11/25/17 18:59 06:59 18:59 Intake Total 2571 / 2571 1850 / 1850 Balance 2571 / 2571 1850 / 1850 Weight 82.9 kg Intake: IV 185 / 1850 1450 / 1450 NS Inj 1,000 ML @ 125 mls/hr IV 1000 / 1000 1000 / 1000 .CONT .Q8H DAVID Rx#:[id number] Doxy 100 Inj 200 MG In NS Inj 250 / 250 250 / 250 250 ML @ 125 mls/hr IV.SIG Q12H DAVID Rx#:[id number] Zyvox 600 mg Premix 300 ML @ 300 / 300 300 mls/hr IV.SIG Q12H DAVID Rx#: [id number] Zosyn 4.5 GM Premix 4.5 gm In 200 / 200 200 / 200 100 ml @ 200 mls/hr IV.SIG Q6H DAVID Rx#:[id number] Thiamine Inj 100 MG In NS Inj 101 / 101 100 ML @ 100 mls/hr IV.SIG DAILY DAVID Rx#:[id number] Oral 720 / 720 400 / 400 Other: # Voids 4 3 Date of Last Bowel Movement 11/24/17 11/24/17 11/25/17 # Bowel Movements 5 Narrative: GENERAL: NAD, A&Ox3 HEAD: Normocephalic. NECK: Supple, trachea midline. No lymphadenopathy. EYES: No scleral icterus. No injection or drainage. CARDIOVASCULAR: Regular rate and rhythm without murmurs, gallops, or rubs. RESPIRATORY: Breath sounds equal bilaterally. No accessory muscle use. GASTROINTESTINAL: Abdomen soft, non-tender, nondistended. MUSCULOSKELETAL: No cyanosis, or edema. Follicular rash including patient's face, neck, shoulders, back, upper chest, and arms. No significant involvement of rash at buttocks, genitals, and legs. Healing cellulitis left ear. SKIN: Warm and dry. NEURO: No focal neurological deficits. Results - Labs CBC & Chem 7: 11/25/17 07:03 11/25/17 07:03 Laboratory Results - last 24 hr 11/24/17 11/24/17 11/25/17 17:38 21:29 02:09 WBC RBC Hgb Hct MCV MCH MCHC RDW Plt Count MPV Neut % (Auto) Lymph % (Auto) Swain % (Auto) Eos % (Auto) Baso % (Auto) Neut # (Auto) Lymph # (Auto) Swain # (Auto) Eos # (Auto) Baso # (Auto) WBC Differential Differential Comment ESR Sodium Potassium Chloride Carbon Dioxide Anion Gap BUN Creatinine Estimated GFR POC Glucose 137 H 108 Random Glucose Calcium Total Bilirubin AST ALT Alkaline Phosphatase C-Reactive Protein Total Protein Albumin TSH Stl C.difficile Tox PCR Negative St C. diff Tox Epid 027 Negative 11/25/17 11/25/17 07:03 07:03 WBC 9.5 RBC 3.70 L Hgb 12.0 L Hct 35.0 L MCV 94.4 MCH 32.4 MCHC 34.3 RDW 13.1 Plt Count 299 D MPV 7.2 Neut % (Auto) 73.9 H Lymph % (Auto) 15.0 Swain % (Auto) 7.3 Eos % (Auto) 3.3 Baso % (Auto) 0.5 Neut # (Auto) 7.0 Lymph # (Auto) 1.4 Swain # (Auto) 0.7 Eos # (Auto) 0.3 Baso # (Auto) 0.0 WBC Differential . Differential Comment Auto diff final ESR Greater than 140 H Sodium 140 Potassium 2.9 L* Chloride 105 Carbon Dioxide 22.4 Anion Gap 13 BUN 7 Creatinine 0.82 Estimated GFR Greater than 89 POC Glucose Random Glucose 133 H Calcium 8.5 Total Bilirubin 0.8 AST 67 H ALT 153 H Alkaline Phosphatase 165 H C-Reactive Protein 14.00 H Total Protein 6.7 D Albumin 2.3 L TSH 3.000 Stl C.difficile Tox PCR St C. diff Tox Epid 027 Microbiology 11/23/17 17:00 Blood - Peripheral Aerobic Blood Culture - Preliminary No growth in 2 days 11/23/17 17:00 Blood - Peripheral Anaerobic Blood Culture - Preliminary No growth in 2 days 11/23/17 16:45 Blood - Peripheral Aerobic Blood Culture - Preliminary No growth in 2 days 11/23/17 16:45 Blood - Peripheral Anaerobic Blood Culture - Preliminary No growth in 2 days 11/22/17 18:55 Lumbar Puncture Gram Stain - Final 11/22/17 18:55 Lumbar Puncture CSF Culture - Final No growth in 72 hours Assessment and Plan - Assessment (1) Severe sepsis Code(s): A41.9 - Sepsis, unspecified organism; R65.20 - Severe sepsis without septic shock Status: Acute (2) Abscess of left earlobe Code(s): H60.02 - Abscess of left external ear Status: Acute (3) Alcohol withdrawal Code(s): F10.239 - Alcohol dependence with withdrawal, unspecified Status: Acute - Plan 47-year-old male admitted secondary to acute skin reaction with fever and tachycardia Dermatitis Folliculitis Suspected sulfonamide hypersensitivity syndrome Fever of unknown origin Patient meets sepsis criteria at time of admit if infection present This could also represent medication reaction or viral exanthem Continue Zosyn Continue Zyvox Follow lumbar puncture results Fevers are subsiding Systemic steroids are considered but patient has a past history of reaction with steroids Antihistamines initiated Follow clinically for improvement Diarrhea C. difficile screen pending Imodium History of alcohol abuse Librium started CIWA protocol Continue thiamine, folic acid, and multivitamin Kidney injury Hyponatremia Hypokalemia Continue IV hydration Replace electrolytes as needed
[2017-11-25] MEDS: Enoxaparin Inj 40 MG/0.4 ML Syringe SQ SCH (13:00)
--- NOTE | 2017-11-25 15:26 | ECHRPT ---
Indication: sepsis endocarditis CONCLUSIONS Normal left ventricular size. Wall thickness is normal. The left ventricular systolic function is moderately reduced with an estimated ejection fraction in the range of 40-45%. Mild mitral valve regurgitation. Trace aortic valve regurgitation. There is trace tricuspid valve regurgitation. The estimated pulmonary arterial pressure is 32 mmHg. BP: / HR: Rhythm: MEASUREMENTS (Male / Female) Normal Values Technical Quality: 2D ECHO LV Diastolic Diameter PLAX 5.0 cm 4.2 - 5.9 / 3.9 - 5.3 cm LV Systolic Diameter PLAX 4.2 cm IVS Diastolic Thickness 0.8 cm 0.6 - 1.0 / 0.6 - 0.9 cm LVPW Diastolic Thickness 0.7 cm 0.6 - 1.0 / 0.6 - 0.9 cm LV Relative Wall Thickness 0.3 RV Internal Dim ED PLAX 3.1 cm LA Systolic Diameter LX 4.1 cm 3.0 - 4.0 / 2.7 - 3.8 cm M-MODE Aortic Root Diameter MM 2.9 cm AV Cusp Separation MM 1.9 cm DOPPLER TR Peak Velocity 259.0 cm/s TR Peak Gradient 26.8 mmHg Right Atrial Pressure 5.0 mmHg Pulmonary Artery Systolic Pressu 31.8 mmHg Right Ventricular Systolic Press 31.8 mmHg FINDINGS LEFT VENTRICLE Normal left ventricular size. Wall thickness is normal. The left ventricular systolic function is moderately reduced with an estimated ejection fraction in the range of 40-45%. RIGHT VENTRICLE Normal right ventricular size and systolic function. LEFT ATRIUM The left atrial size is normal. RIGHT ATRIUM The right atrial size is normal. ATRIAL SEPTUM Normal atrial septal thickness without atrial level shunting by limited color doppler interrogation. AORTA The aortic root and proximal ascending aorta are normal in size on limited imaging. MITRAL VALVE Mild mitral valve regurgitation. AORTIC VALVE Trace aortic valve regurgitation. TRICUSPID VALVE There is trace tricuspid valve regurgitation. The estimated pulmonary arterial pressure is 32 mmHg. PULMONARY VALVE No pulmonary valve regurgitation or stenosis. VESSELS The inferior vena cava is normal in size. PERICARDIUM No pericardial effusion. Cristal Aldana MD (Electronically Signed) Final Date:25 November 2017 15:24
[2017-11-25] MEDS: LORazepam 1 MG Tablet PO PRN (17:50)
--- NOTE | 2017-11-25 19:03 | P.PNID ---
Subjective Remarks: ID coverage. Background information: Mr. Chen is a 47-year-old male with past medical history of hypertension presents to the emergency department on November 21, 2017 generalized weakness, left ear pain as well as nausea and vomiting. Patient went to the urgent care about 10 days back due to left earlobe pain and lesion. He apparently was given several doses of IV steroids as well as a prescription of Keflex and Bactrim. His symptoms did not improve and patient started developing fever and diaphoresis. Due to extreme weakness and persistent nausea and vomiting patient presented to the hospital not so much for the left earlobe. Regarding his nausea and vomiting patient denies any history of prior gastritis. Patient does report drinking several beers up to 5 beers daily for many years. Patient denies taking any rjci-qmt-lyktrzv pain medications recently. The only other medications he has been on his Keflex and Bactrim. He developed fatigue at work. Patient noticed lesions all over his back, chest abdomen as well as upper and lower extremities since he got into the hospital. Patient reports prior history of chickenpox. Patient denies any prior known history of HIV and hepatitis or any other immune compromised status. Patient consented to being tested for HIV as well as hepatitis. 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 He denies any history of trauma or any sharp needles having been an inciting agent. 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 Infectious diseases consulted for evaluation and management of left earlobe abscess. Patient states he did not sleep at all last night. Feels exhausted. Denies chills. Denies nausea. Dry cough. Denies sweats. Diarrhea Cdiff negative. Maculopapular, vesicular rash with various staging of crusting and ages noted. Some appear to be confluent today. Appears to have improved on the forehead and on the back. No positive information from culture so far. Antibiotics: Zosyn IV Zyvox IV Acyclovir IV Lines: Lines ok Past Medical History: Ear lobe abscess Allergies/Adverse Reactions: Allergies Sulfa (Sulfonamide Antibiotics) Allergy (Verified 11/25/17 14:08) Rash, Generalized caffeine Adverse Reaction (Verified 11/21/17 19:43) Tachycardia methylprednisolone [From Solu-Medrol] Adverse Reaction (Verified 11/25/17 14:09) Rash Objective Vital Signs 11/24/17 20:00 11/24/17 22:00 07/15/18 00:00 Temperature 97.2 F L 98.2 F Pulse Rate 131 H 113 H 117 H Respiratory Rate 21 18 Blood Pressure 108/71 112/68 Pulse Oximetry 94 L 93 L 11/25/17 04:00 11/25/17 06:00 11/25/17 08:00 Temperature 98.4 F 98.8 F Pulse Rate 115 H 100 H 117 H Respiratory Rate 18 17 Blood Pressure 110/66 112/78 Pulse Oximetry 92 L 93 L 11/25/17 12:00 Temperature 98.9 F Pulse Rate 116 H Respiratory Rate 17 Blood Pressure 110/75 Pulse Oximetry 95 Intake & Output 11/24/17 11/25/17 11/25/17 18:59 06:59 18:59 Intake Total 2571 / 2571 1850 / 1850 450 / 450 Balance 2571 / 2571 1850 / 1850 450 / 450 Weight 82.9 kg Intake: IV 1851 / 1851 1450 / 1450 450 / 450 NS Inj 1,000 ML @ 125 mls/hr IV 1000 / 1000 1000 / 1000 .CONT .Q8H DAVID Rx#:[id number] Doxy 100 Inj 200 MG In NS Inj 250 / 250 250 / 250 250 / 250 250 ML @ 125 mls/hr IV.SIG Q12H DAVID Rx#:[id number] Zyvox 600 mg Premix 300 ML @ 300 / 300 300 mls/hr IV.SIG Q12H DAVID Rx#: [id number] Zosyn 4.5 GM Premix 4.5 gm In 200 / 200 200 / 200 200 / 200 100 ml @ 200 mls/hr IV.SIG Q6H DAVID Rx#:[id number] Thiamine Inj 100 MG In NS Inj 101 / 101 100 ML @ 100 mls/hr IV.SIG DAILY DAVID Rx#:[id number] Oral 720 / 720 400 / 400 Other: # Voids 4 3 Date of Last Bowel Movement 11/24/17 11/24/17 11/25/17 # Bowel Movements 5 11/23/17 17:00 Blood - Peripheral Aerobic Blood Culture - Preliminary No growth in 2 days 11/23/17 17:00 Blood - Peripheral Anaerobic Blood Culture - Preliminary No growth in 2 days 11/23/17 16:45 Blood - Peripheral Aerobic Blood Culture - Preliminary No growth in 2 days 11/23/17 16:45 Blood - Peripheral Anaerobic Blood Culture - Preliminary No growth in 2 days 11/22/17 18:55 Lumbar Puncture Gram Stain - Final 11/22/17 18:55 Lumbar Puncture CSF Culture - Final No growth in 72 hours 11/24/17 04:27 Blood - Peripheral Blood Fungal Culture - Pending 11/24/17 04:27 Blood - Peripheral Blood Fungal Culture - Pending 11/22/17 18:55 Fluid - Other Acid Fast Bacilli Smear - Final No acid fast bacilli seen 11/22/17 18:55 Fluid - Other Mycobacterial Culture - Pending 11/22/17 18:55 Cerebral Spinal Fluid - Lumbar Puncture Fungal Smear - Final No fungal elements seen 11/22/17 18:55 Cerebral Spinal Fluid - Lumbar Puncture Fungal Culture - Pending Lab - Hematology Results 11/25/17 07:03 WBC 9.5 RBC 3.70 L Hgb 12.0 L Hct 35.0 L MCV 94.4 MCH 32.4 MCHC 34.3 RDW 13.1 Plt Count 299 D MPV 7.2 Neut % (Auto) 73.9 H Lymph % (Auto) 15.0 Young % (Auto) 7.3 Eos % (Auto) 3.3 Baso % (Auto) 0.5 Neut # (Auto) 7.0 Lymph # (Auto) 1.4 Young # (Auto) 0.7 Eos # (Auto) 0.3 Baso # (Auto) 0.0 WBC Differential . Differential Comment Auto diff final ESR Greater than 140 H Lab - Chemistry Results 11/23/17 11/24/17 11/24/17 21:42 07:45 17:38 Sodium Potassium Chloride Carbon Dioxide Anion Gap BUN Creatinine Estimated GFR POC Glucose 124 H 102 137 H Random Glucose Calcium Total Bilirubin AST ALT Alkaline Phosphatase C-Reactive Protein Total Protein Albumin TSH 11/25/17 11/25/17 11/25/17 02:09 07:03 13:08 Sodium 140 Potassium 2.9 L* Chloride 105 Carbon Dioxide 22.4 Anion Gap 13 BUN 7 Creatinine 0.82 Estimated GFR Greater than 89 POC Glucose 108 92 Random Glucose 133 H Calcium 8.5 Total Bilirubin 0.8 AST 67 H ALT 153 H Alkaline Phosphatase 165 H C-Reactive Protein 14.00 H Total Protein 6.7 D Albumin 2.3 L TSH 3.000 Imaging: ITS Impressions Chest X-Ray 11/21/17 21:59 CONCLUSION: No acute cardiopulmonary process. Head MRI 11/22/17 00:00 CONCLUSION: 1. No acute intracranial abnormality is identified. 2. Mild paranasal sinus mucoperiosteal thickening. Lumbar Puncture Fluoroscopy 11/22/17 00:00 CONCLUSION: 1. Uncomplicated fluoroscopically guided lumbar puncture. Abdomen/Pelvis CT 11/22/17 00:01 CONCLUSION: 1. Moderate bladder distention. Although nonspecific, consider evaluation for bladder outlet obstruction or neurogenic bladder. 2. Mild hepatomegaly with diffusely decreased hepatic density consistent with hepatic steatosis or medical liver disease. 3. Normal appendix. Physical Exam: GENERAL: Alert and oriented, no acute distress. HEENT: Pupils reactive to light. Extraocular movements intact. No icterus. Mild conjunctival erythema on the right. Mild erythema around the eyelids without swelling NECK: Supple without adenopathy. No swelling. LUNGS: Clear to auscultation. HEART: Regular rate and rhythm without murmurs rubs or gallops. ABDOMEN: Positive bowel sounds, soft, nontender. EXTREMITIES: Round maculopapular erythematous lesions particular at the back of the neck anterior chest forehead arms back. 2 lesions at the right wrist which have slightly different characteristic is erythematous and linea. One lesion at the left forearm has a ghanshyam petal appearance with tiny central scab SKIN: Maculopapular rash NEUROLOGIC: Nonfocal PSYCH: Calm and cooperative. Assessment and Plan - Plan Fever with rash (diffuse vesicular, maculopapular lesions). Concern for viral exanthem ? Disseminated herpes zoster, Acute retroviral syndrome, Primary syphilis. Neck pain and headache: rule out meningoencephalitis. Left ear lobe abscess received IV steroids and antibiotics. Nausea and Vomiting: ? meds related vs meningoencephalitis related. Hyponatremia? CARBIDE DIE MAKER infection related vs metabolic. Lactic acidemia ? Sepsis in an immune compromised patient. recs Continue Zosyn IV Continue Zyvox IV Continue Acyclovir IV for possible VZV meningoencephalitis. Continue airborne isolation. 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 He did not immerse his body parts in brackish water. He has no bullous or hemorrhagic bullae at present time but will start Doxy IV pending further evaluation by [facility] covering for me in am to rule out Vibrio Vulnificus infection. Follow blood cultures. Follow VZV workup Ordered fungal blood cultures. MRI brain with no abscess or signs of infection. LP normal Protein, WBC low. HIV and Hepatitis negative. Follow HIV PCR to r/o acute retroviral syndrome. Follow I/O if concerns for retention of urine consider Spine imaging with MRI to r/o epidural abscess Follow 2D ECHO. RPR negative. Follow cultures Follow clinically.
[2017-11-25] MEDS: Temazepam 15 MG Capsule PO PRN (23:34)
[2017-11-26] MEDS: Sod Chloride 0.9% Inj 1,000 ML IV.CONT SCH ×3 (02:08→16:41)
[2017-11-26] MEDS: Piperacil/Tazo 4.5 GM Premix 4.5 GM/100 ML BAG IV.SIG SCH ×3 (02:09→15:03)
[2017-11-26] MEDS: Acetaminophen 325 MG Tablet PO PRN ×2 (05:05→16:50)
[2017-11-26] MEDS: Famotidine 20 MG Tablet PO SCH ×2 (08:34→20:04)
[2017-11-26] MEDS: Loratadine 10 MG Tablet PO SCH (08:34)
[2017-11-26] MEDS: Folic Acid 1 MG Tablet PO SCH (08:34)
[2017-11-26] MEDS: Multivitamin/Minerals Therapeutic Tablet PO SCH (08:34)
[2017-11-26] MEDS: Doxycycline Inj 200 MG in Sodium Chlor 0.9% Inj 250 ML IV.SIG SCH (08:36)
[2017-11-26] MEDS: Loperamide 2 MG Capsule PO PRN (10:41)
[2017-11-26] MEDS: Aluminum/Magnesium/Simethacone Susp 30 ML UDC PO PRN ×2 (10:41→20:04)
[2017-11-26] MEDS: Enoxaparin Inj 40 MG/0.4 ML Syringe SQ SCH (11:16)
[2017-11-26 11:30] LABS: Calcium 8.5 mg/dL (8.5-10.1); Carbon Dioxide 25.8 meq/L (21.0-32.0); Potassium 3.3 meq/L (3.5-5.1)
--- NOTE | 2017-11-26 11:32 | P.PNIM ---
Subjective Interval history: No acute distress from patient today. He has some signs of improvement of his skin rash. He says he is feeling less tachycardic when he gets up and walks to the bathroom. No new complaints. Physical Exam Vital signs: Vital Signs 11/25/17 12:00 11/25/17 16:00 11/25/17 20:00 Temperature 98.9 F 100.1 F H 98.1 F Pulse Rate 116 H 125 H 121 H Respiratory Rate 17 17 18 Blood Pressure 110/75 113/77 100/66 Pulse Oximetry 95 93 L 99 11/25/17 20:09 11/26/17 00:00 11/26/17 04:00 Temperature 98 F 99.1 F Pulse Rate 121 H 112 H Respiratory Rate 18 18 18 Blood Pressure 104/69 111/58 L Pulse Oximetry 99 93 L 11/26/17 08:00 Temperature 98 F Pulse Rate 110 H Respiratory Rate 20 Blood Pressure 118/84 Pulse Oximetry 98 Intake & Output 11/25/17 11/26/17 11/26/17 18:59 06:59 18:59 Intake Total 2470 / 2470 5770 / 5770 250 / 250 Output Total 4 / 4 Balance 2470 / 2470 5770 / 5770 246 / 246 Weight 82.9 kg 82.8 kg Intake: IV 1750 / 1750 1750 / 1750 250 / 250 NS Inj 1,000 ML @ 125 mls/hr IV 1000 / 1000 1000 / 1000 0 / 0 .CONT .Q8H DAVID Rx#:[id number] Doxy 100 Inj 200 MG In NS Inj 250 / 250 250 / 250 250 / 250 250 ML @ 125 mls/hr IV.SIG Q12H DAVID Rx#:[id number] Zyvox 600 mg Premix 300 ML @ 300 / 300 300 / 300 300 mls/hr IV.SIG Q12H DAVID Rx#: [id number] Zosyn 4.5 GM Premix 4.5 gm In 200 / 200 200 / 200 100 ml @ 200 mls/hr IV.SIG Q6H DAVID Rx#:[id number] Oral 720 / 720 1520 / 1520 Other 2500 / 2500 Output: Urine 4 / 4 Other: Other Intake Source Saline Solution # Voids 5 5 Date of Last Bowel Movement 11/25/17 11/25/17 # Bowel Movements 5 5 # Emeses 1 Narrative: GENERAL: NAD, A&Ox3 HEAD: Normocephalic. NECK: Supple, trachea midline. No lymphadenopathy. EYES: No scleral icterus. No injection or drainage. CARDIOVASCULAR: Regular rate and rhythm without murmurs, gallops, or rubs. RESPIRATORY: Breath sounds equal bilaterally. No accessory muscle use. GASTROINTESTINAL: Abdomen soft, non-tender, nondistended. MUSCULOSKELETAL: No cyanosis, or edema. Improving follicular rash including patient's face, neck, shoulders, back, upper chest, and arms. No significant involvement of rash at buttocks, genitals, and legs. Healing cellulitis left ear. SKIN: Warm and dry. NEURO: No focal neurological deficits. Results - Labs CBC & Chem 7: 11/25/17 07:03 11/26/17 09:17 Laboratory Results - last 24 hr 11/25/17 11/26/17 13:08 09:17 Sodium 142 Potassium 3.3 L Chloride 106 Carbon Dioxide 25.8 Anion Gap 10 BUN 6 L Creatinine 1.00 Estimated GFR 80 L POC Glucose 92 Random Glucose 110 H Calcium 8.5 Microbiology 11/23/17 17:00 Blood - Peripheral Aerobic Blood Culture - Preliminary No growth in 3 days 11/23/17 17:00 Blood - Peripheral Anaerobic Blood Culture - Preliminary No growth in 3 days 11/23/17 16:45 Blood - Peripheral Aerobic Blood Culture - Preliminary No growth in 3 days 11/23/17 16:45 Blood - Peripheral Anaerobic Blood Culture - Preliminary No growth in 3 days 11/22/17 18:55 Lumbar Puncture Gram Stain - Final 11/22/17 18:55 Lumbar Puncture CSF Culture - Final No growth in 72 hours Assessment and Plan - Assessment (1) Severe sepsis Code(s): A41.9 - Sepsis, unspecified organism; R65.20 - Severe sepsis without septic shock Status: Acute (2) Abscess of left earlobe Code(s): H60.02 - Abscess of left external ear Status: Acute (3) Alcohol withdrawal Code(s): F10.239 - Alcohol dependence with withdrawal, unspecified Status: Acute - Plan 47-year-old male admitted secondary to acute skin reaction with fever and tachycardia Signs of improvement today. No new complaints from patient. Continue to monitor cultures and infectious workup findings. Dermatitis Folliculitis Suspected sulfonamide hypersensitivity syndrome Fever of unknown origin Patient meets sepsis criteria at time of admit if infection present This could also represent medication reaction or viral exanthem Continue Zosyn Continue Zyvox Follow lumbar puncture results Fevers are subsiding Systemic steroids are considered but patient has a past history of reaction with steroids Continue antihistamines Follow clinically for improvement Diarrhea C. difficile screen pending Imodium History of alcohol abuse Librium started CIWA protocol Continue thiamine, folic acid, and multivitamin Kidney injury Hyponatremia Hypokalemia Continue IV hydration Replace electrolytes as needed
[2017-11-26] MEDS ORDERED: ALPRAZolam 0.25 MG Tablet PO PRN (15:11)
[2017-11-26] MEDS ORDERED: Zolpidem Tartrate 5 MG Tablet PO PRN (15:20)
--- NOTE | 2017-11-26 18:31 | P.PNID ---
Subjective Remarks: ID coverage. Background information: Mr. Chen is a 47-year-old male with past medical history of hypertension presents to the emergency department on November 21, 2017 generalized weakness, left ear pain as well as nausea and vomiting. Patient went to the urgent care about 10 days back due to left earlobe pain and lesion. He apparently was given several doses of IV steroids as well as a prescription of Keflex and Bactrim. His symptoms did not improve and patient started developing fever and diaphoresis. Due to extreme weakness and persistent nausea and vomiting patient presented to the hospital not so much for the left earlobe. Regarding his nausea and vomiting patient denies any history of prior gastritis. Patient does report drinking several beers up to 5 beers daily for many years. Patient denies taking any kopl-ytw-arixiik pain medications recently. The only other medications he has been on his Keflex and Bactrim. He developed fatigue at work. Patient noticed lesions all over his back, chest abdomen as well as upper and lower extremities since he got into the hospital. Patient reports prior history of chickenpox. Patient denies any prior known history of HIV and hepatitis or any other immune compromised status. Patient consented to being tested for HIV as well as hepatitis. 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 He denies any history of trauma or any sharp needles having been an inciting agent. 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 Infectious diseases consulted for evaluation and management of left earlobe abscess. Patient feels better. Feels stronger. No PATRICIA Denies chills. Denies nausea. Little cough. Denies joint pain. Marked elevation in sed rate and CRP. LFT elevated. Diarrhea Cdiff negative. Maculopapular, vesicular rash with various staging of crusting and ages noted. Skin lesions are fading. No positive information from culture so far. Antibiotics: Zosyn IV Zyvox IV Acyclovir IV Lines: Lines ok Past Medical History: Ear lobe abscess Allergies/Adverse Reactions: Allergies Sulfa (Sulfonamide Antibiotics) Allergy (Verified 11/25/17 14:08) Rash, Generalized caffeine Adverse Reaction (Verified 11/21/17 19:43) Tachycardia methylprednisolone [From Solu-Medrol] Adverse Reaction (Verified 11/25/17 14:09) Rash Objective Vital Signs 11/25/17 20:00 11/25/17 20:09 11/26/17 00:00 Temperature 98.1 F 98 F Pulse Rate 121 H 121 H Respiratory Rate 18 18 18 Blood Pressure 100/66 104/69 Pulse Oximetry 99 99 11/26/17 04:00 11/26/17 08:00 11/26/17 12:00 Temperature 99.1 F 98 F 98.4 F Pulse Rate 112 H 110 H 63 Respiratory Rate 18 20 18 Blood Pressure 111/58 L 118/84 116/83 Pulse Oximetry 93 L 98 99 11/26/17 16:00 Temperature 98.5 F Pulse Rate 115 H Respiratory Rate 20 Blood Pressure 123/75 Pulse Oximetry 100 Intake & Output 11/25/17 11/26/17 11/26/17 18:59 06:59 18:59 Intake Total 2470 / 2470 5770 / 5770 350 / 350 Output Total 4 / 4 Balance 2470 / 2470 5770 / 5770 346 / 346 Weight 82.9 kg 82.8 kg Intake: IV 1750 / 1750 1750 / 1750 350 / 350 NS Inj 1,000 ML @ 125 mls/hr IV 1000 / 1000 1000 / 1000 0 / 0 .CONT .Q8H DAVID Rx#:[id number] Doxy 100 Inj 200 MG In NS Inj 250 / 250 250 / 250 250 / 250 250 ML @ 125 mls/hr IV.SIG Q12H DAVID Rx#:[id number] Zyvox 600 mg Premix 300 ML @ 300 / 300 300 / 300 300 mls/hr IV.SIG Q12H DAVID Rx#: [id number] Zosyn 4.5 GM Premix 4.5 gm In 200 / 200 200 / 200 100 / 100 100 ml @ 200 mls/hr IV.SIG Q6H DAVID Rx#:[id number] Oral 720 / 720 1520 / 1520 Other 2500 / 2500 Output: Urine 4 / 4 Other: Other Intake Source Saline Solution # Voids 5 5 Date of Last Bowel Movement 11/25/17 11/25/17 # Bowel Movements 5 5 # Emeses 1 11/23/17 17:00 Blood - Peripheral Aerobic Blood Culture - Preliminary No growth in 3 days 11/23/17 17:00 Blood - Peripheral Anaerobic Blood Culture - Preliminary No growth in 3 days 11/23/17 16:45 Blood - Peripheral Aerobic Blood Culture - Preliminary No growth in 3 days 11/23/17 16:45 Blood - Peripheral Anaerobic Blood Culture - Preliminary No growth in 3 days 11/22/17 18:55 Lumbar Puncture Gram Stain - Final 11/22/17 18:55 Lumbar Puncture CSF Culture - Final No growth in 72 hours 11/24/17 04:27 Blood - Peripheral Blood Fungal Culture - Pending 11/24/17 04:27 Blood - Peripheral Blood Fungal Culture - Pending 11/22/17 18:55 Fluid - Other Acid Fast Bacilli Smear - Final No acid fast bacilli seen 11/22/17 18:55 Fluid - Other Mycobacterial Culture - Pending Lab - Hematology Results 11/25/17 07:03 WBC 9.5 RBC 3.70 L Hgb 12.0 L Hct 35.0 L MCV 94.4 MCH 32.4 MCHC 34.3 RDW 13.1 Plt Count 299 D MPV 7.2 Neut % (Auto) 73.9 H Lymph % (Auto) 15.0 [place] % (Auto) 7.3 Eos % (Auto) 3.3 Baso % (Auto) 0.5 Neut # (Auto) 7.0 Lymph # (Auto) 1.4 [place] # (Auto) 0.7 Eos # (Auto) 0.3 Baso # (Auto) 0.0 WBC Differential . Differential Comment Auto diff final ESR Greater than 140 H Lab - Chemistry Results 11/25/17 11/25/17 11/25/17 02:09 07:03 13:08 Sodium 140 Potassium 2.9 L* Chloride 105 Carbon Dioxide 22.4 Anion Gap 13 BUN 7 Creatinine 0.82 Estimated GFR Greater than 89 POC Glucose 108 92 Random Glucose 133 H Calcium 8.5 Total Bilirubin 0.8 AST 67 H ALT 153 H Alkaline Phosphatase 165 H C-Reactive Protein 14.00 H Total Protein 6.7 D Albumin 2.3 L TSH 3.000 11/26/17 09:17 Sodium 142 Potassium 3.3 L Chloride 106 Carbon Dioxide 25.8 Anion Gap 10 BUN 6 L Creatinine 1.00 Estimated GFR 80 L POC Glucose Random Glucose 110 H Calcium 8.5 Total Bilirubin AST ALT Alkaline Phosphatase C-Reactive Protein Total Protein Albumin TSH Imaging: ITS Impressions Chest X-Ray 11/21/17 21:59 CONCLUSION: No acute cardiopulmonary process. Head MRI 11/22/17 00:00 CONCLUSION: 1. No acute intracranial abnormality is identified. 2. Mild paranasal sinus mucoperiosteal thickening. Lumbar Puncture Fluoroscopy 11/22/17 00:00 CONCLUSION: 1. Uncomplicated fluoroscopically guided lumbar puncture. Abdomen/Pelvis CT 11/22/17 00:01 CONCLUSION: 1. Moderate bladder distention. Although nonspecific, consider evaluation for bladder outlet obstruction or neurogenic bladder. 2. Mild hepatomegaly with diffusely decreased hepatic density consistent with hepatic steatosis or medical liver disease. 3. Normal appendix. Physical Exam: GENERAL: Alert and oriented, no acute distress. HEENT: Pupils reactive to light. Extraocular movements intact. No icterus. Mild conjunctival erythema on the right. Mild erythema around the eyelids without swelling NECK: Supple without adenopathy. No swelling. LUNGS: Clear to auscultation. HEART: Regular rate and rhythm without murmurs rubs or gallops. ABDOMEN: Positive bowel sounds, soft, nontender. No mass palpable. EXTREMITIES: Round maculopapular erythematous lesions particular at the back of the neck anterior chest forehead arms back much less erythematous. 2 lesions at the right wrist which have slightly different characteristic is erythematous and linea. One lesion at the left forearm has a ghanshyam petal appearance with tiny central scab SKIN: Maculopapular rash. no involvement of the legs. NEUROLOGIC: Nonfocal PSYCH: Calm and cooperative. Assessment and Plan - Plan Fever with rash (diffuse vesicular, maculopapular lesions). Concern for viral exanthem ? Disseminated herpes zoster, Acute retroviral syndrome, Primary syphilis. Neck pain and headache: rule out meningoencephalitis. Left ear lobe abscess received IV steroids and antibiotics. Nausea and Vomiting: ? meds related vs meningoencephalitis related. Hyponatremia? [employer] infection related vs metabolic. Lactic acidemia ? Sepsis in an immune compromised patient. 2D ECHO unremarkable. Elevated CRP and SED rate. Elevated LFTs. HIV PCR negative. recs Stop Zosyn IV Stop Zyvox IV Stop Acyclovir. Stop Doxycycline. Discontinue isolation. Continue airborne isolation. 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 He did not immerse his body parts in brackish water. bullae at present time but will start Doxy IV pending further evaluation by LORI HILL covering for me in am to rule out Vibrio Vulnificus infection. Follow fungal blood cultures. Follow VZV workup HIV and Hepatitis negative. Follow HIV PCR to r/o acute retroviral syndrome. Follow I/O if concerns for retention of urine consider Spine imaging with MRI to r/o epidural abscess Obtain RUBÉN and RF. If clinically stable he can be discharged in day or 2 and follow up as outpatient.
[2017-11-26] MEDS: Temazepam 15 MG Capsule PO PRN (20:04)
[2017-11-26 23:52] LABS: Varicella Zoster IgM 0.33 (Negative)
[2017-11-27] MEDS: Sod Chloride 0.9% Inj 1,000 ML IV.CONT SCH ×2 (00:10→07:58)
[2017-11-27 07:12] LABS: Baso # (Auto) 0.1 th/mm3 (0.0-0.2); Baso % (Auto) 0.7 % (0.0-2.0); Eos # (Auto) 0.4 th/mm3 (0.0-0.4); Hematocrit 37.4 % (39.0-51.0); Hemoglobin 12.8 gm/dL (13.0-17.0); Lymph # (Auto) 1.4 th/mm3 (1.0-4.8); Lymph % (Auto) 14.8 % (9.0-44.0); Mean Corpuscular HGB Conc 34.3 % (32.0-36.0); Mean Corpuscular Hemoglobin 32.3 pg (27.0-34.0); Mean Platelet Volume 6.8 fL (7.0-11.0); Mono # (Auto) 0.7 th/mm3 (0.0-0.9); Mono % (Auto) 7.5 % (0.0-8.0); Neut # (Auto) 7.1 th/mm3 (1.8-7.7); Platelet Count 446 th/mm3 (150-450); Red Blood Count 3.98 mil/mm3 (4.50-5.90); Red Cell Distribution Width 13.1 % (11.6-17.2); White Blood Count 9.7 th/mm3 (4.0-11.0)
[2017-11-27 07:53] LABS: Alanine Aminotransferase 123 U/L (12-78); Albumin 2.4 g/dL (3.4-5.0); Anion Gap 11 meq/L (5-15); Aspartate Aminotransferase 44 U/L (15-37); Blood Urea Nitrogen 9 mg/dL (7-18); Calcium 8.4 mg/dL (8.5-10.1); Carbon Dioxide 23.1 meq/L (21.0-32.0); Chloride 109 meq/L (98-107); Glomerular Filtration Rate Greater Than 89 mL/min (>89); Glucose,Random 106 mg/dL (74-106); Potassium 3.5 meq/L (3.5-5.1); Sodium 143 meq/L (136-145)
[2017-11-27 07:56] LABS: Alkaline Phosphatase 149 U/L (45-117)
[2017-11-27] MEDS: Loratadine 10 MG Tablet PO SCH (08:01)
[2017-11-27] MEDS: Famotidine 20 MG Tablet PO SCH (08:01)
[2017-11-27] MEDS: Loperamide 2 MG Capsule PO PRN (08:04)
[2017-11-27] MEDS: Enoxaparin Inj 40 MG/0.4 ML Syringe SQ SCH (11:30)
--- NOTE | 2017-11-27 11:58 | P.DS ---
Date of admission: 11/22/17 02:59 Primary care physician: No Primary Care Physician Brief History from admission: Mr. Chen is a 47-year-old male with a history of hypertension who presented to the emergency department on 11/21/2017 due to generalized weakness, left ear pain as well as nausea and vomiting. He went to an urgent care about 10 days ago due to left earlobe pain and lesion. He apparently was given several doses of IV steroid as well as prescription for Keflex and Bactrim. His symptoms did not improve and he started having fever, diaphoresis. Subsequently he decided to come to the emergency department. Patient reports drinking 5-6 alcoholic drinks a day. However due to nausea vomiting he has not had much to drink in the recent few days. At the time of this interview, patient feels fatigued. No chest pain, shortness of breath. No changes in bowel or bladder habits. DS: Diagnosis - Discharge Diagnosis (1) Severe sepsis Status: Acute (2) Abscess of left earlobe Status: Acute (3) Alcohol withdrawal Status: Acute DS: Medications - Discharge Medications Prescriptions: loratadine 10 mg PO DAILY #6 tab DS: Summary Hospital Course: Mr. Chen is a 47-year-old male. He was admitted to the hospital with fever, tachycardia, and diffuse rash. Prior to being admitted he had been treated as an outpatient for a left ear cellulitis. For this he received Rocephin amoxicillin and Bactrim. He has previously used amoxicillin without any allergy. He cannot recall whether he sees Bactrim or not. His daughter has used Bactrim and had a skin reaction to it. The reaction occurred about 5 days after starting Bactrim. Etiology for his condition was uncertain at the beginning and he was treated for bacterial sepsis versus viral versus fungal versus a sulfonamide hypersensitivity reaction. Infectious workup did not show any positive findings. His CRP and ESR were drastically elevated suggesting systemic inflammation from autoimmunity versus allergic reaction patient is improving on an antihistamine at this point. (He could not use steroids due to previous allergy to steroids). Significant improvements are seen in the past 2 days. Patient is approaching his previous baseline. His only complaint now is fatigue. Erythematous/follicular rash is resolving. He is medically stable and cleared for discharge to home with continuation of antihistamine for 6 days at this point. - Time Spent with Patient Total time spent providing and/or coordinating discharge services: - Quality: VTE Deep Vein Thrombosis/Pulmonary Embolism Present on Admission: Yes Exam Vital signs: Vital Signs 11/26/17 12:00 11/26/17 16:00 11/26/17 19:30 Temperature 98.4 F 98.5 F Pulse Rate 63 115 H Respiratory Rate 18 20 18 Blood Pressure 116/83 123/75 Pulse Oximetry 99 100 11/26/17 20:00 11/27/17 00:00 11/27/17 04:00 Temperature 98.4 F 98.6 F 99.1 F Pulse Rate 109 H 119 H 109 H Respiratory Rate 18 18 18 Blood Pressure 118/83 120/81 146/71 H Pulse Oximetry 97 98 97 11/27/17 08:00 11/27/17 09:00 Temperature 98.3 F Pulse Rate 99 H 104 H Respiratory Rate 20 Blood Pressure 130/86 Pulse Oximetry 99 Intake & Output 11/26/17 11/27/17 11/27/17 18:59 06:59 18:59 Intake Total 750 / 750 5700 / 5700 1000 / 1000 Output Total 4 / 4 Balance 746 / 746 5700 / 5700 1000 / 1000 Weight 82.8 kg 88.1 kg Intake: IV 750 / 750 1000 / 1000 1000 / 1000 NS Inj 1,000 ML @ 125 mls/hr IV 0 / 0 1000 / 1000 1000 / 1000 .CONT .Q8H DAVID Rx#:[id number] Doxy 100 Inj 200 MG In NS Inj 250 / 250 250 ML @ 125 mls/hr IV.SIG Q12H DAVID Rx#:[id number] Zyvox 600 mg Premix 300 ML @ 300 / 300 300 mls/hr IV.SIG Q12H DAVID Rx#: [id number] Zosyn 4.5 GM Premix 4.5 gm In 200 / 200 100 ml @ 200 mls/hr IV.SIG Q6H DAVID Rx#:[id number] Oral 1700 / 1700 Other 3000 / 3000 Output: Urine 4 / 4 Other: Other Intake Source Saline Solution # Voids 7 3 Date of Last Bowel Movement 11/26/17 11/26/17 # Bowel Movements 1 # Emeses 1 Results Procedures completed during hospitalization: none Labs on day of discharge: Labs from last 24 hours 11/27/17 11/27/17 11/27/17 08:07 06:00 06:00 WBC 9.7 RBC 3.98 L Hgb 12.8 L Hct 37.4 L MCV 94.0 MCH 32.3 MCHC 34.3 RDW 13.1 Plt Count 446 D MPV 6.8 L Neut % (Auto) 73.0 H Lymph % (Auto) 14.8 [place] % (Auto) 7.5 Eos % (Auto) 4.0 Baso % (Auto) 0.7 Neut # (Auto) 7.1 Lymph # (Auto) 1.4 [place] # (Auto) 0.7 Eos # (Auto) 0.4 Baso # (Auto) 0.1 WBC Differential . Differential Comment Auto diff final Sodium 143 Potassium 3.5 Chloride 109 H Carbon Dioxide 23.1 Anion Gap 11 BUN 9 Creatinine 0.79 Estimated GFR Greater than 89 POC Glucose 111 H Random Glucose 106 Calcium 8.4 L Total Bilirubin 0.4 AST 44 H ALT 123 H Alkaline Phosphatase 149 H Total Protein 7.0 Albumin 2.4 L Rheumatoid Factor Scrn Rheumatoid Factor Titer RUBÉN Screen VZV IgM Antibody 11/27/17 11/26/17 11/26/17 06:00 20:09 09:17 WBC RBC Hgb Hct MCV MCH MCHC RDW Plt Count MPV Neut % (Auto) Lymph % (Auto) [place] % (Auto) Eos % (Auto) Baso % (Auto) Neut # (Auto) Lymph # (Auto) [place] # (Auto) Eos # (Auto) Baso # (Auto) WBC Differential Differential Comment Sodium Potassium Chloride Carbon Dioxide Anion Gap BUN Creatinine Estimated GFR POC Glucose 126 H Random Glucose Calcium Total Bilirubin AST ALT Alkaline Phosphatase Total Protein Albumin Rheumatoid Factor Scrn Negative Rheumatoid Factor Titer Not Reportable RUBÉN Screen Pending VZV IgM Antibody 11/23/17 07:10 WBC RBC Hgb Hct MCV MCH MCHC RDW Plt Count MPV Neut % (Auto) Lymph % (Auto) [place] % (Auto) Eos % (Auto) Baso % (Auto) Neut # (Auto) Lymph # (Auto) [place] # (Auto) Eos # (Auto) Baso # (Auto) WBC Differential Differential Comment Sodium Potassium Chloride Carbon Dioxide Anion Gap BUN Creatinine Estimated GFR POC Glucose Random Glucose Calcium Total Bilirubin AST ALT Alkaline Phosphatase Total Protein Albumin Rheumatoid Factor Scrn Rheumatoid Factor Titer RUBÉN Screen VZV IgM Antibody 0.33 Preliminary micro results at discharge 11/23/17 17:00 Aerobic Blood Culture - Preliminary Blood - Peripheral No growth in 4 days Anaerobic Blood Culture - Preliminary No growth in 4 days 11/23/17 16:45 Aerobic Blood Culture - Preliminary Blood - Peripheral No growth in 4 days Anaerobic Blood Culture - Preliminary No growth in 4 days - Impressions ITS Impressions Chest X-Ray 11/21/17 21:59 CONCLUSION: No acute cardiopulmonary process. Head MRI 11/22/17 00:00 CONCLUSION: 1. No acute intracranial abnormality is identified. 2. Mild paranasal sinus mucoperiosteal thickening. Lumbar Puncture Fluoroscopy 11/22/17 00:00 CONCLUSION: 1. Uncomplicated fluoroscopically guided lumbar puncture. Abdomen/Pelvis CT 11/22/17 00:01 CONCLUSION: 1. Moderate bladder distention. Although nonspecific, consider evaluation for bladder outlet obstruction or neurogenic bladder. 2. Mild hepatomegaly with diffusely decreased hepatic density consistent with hepatic steatosis or medical liver disease. 3. Normal appendix. Discharge Plan - Discharge Disposition Patient Disposition: Discharge Home - Discharge Condition Condition: Stable - Discharge Order Discharge Orders: Discharge Order (Routine); Ordered 11/27/17 Ordered By: Nicolas Van - Physicians Team Primary Care Provider: Primary Care Tania Lockett Attending Provider: Nicolas Van Other Providers: Grace Golden MD
[2017-11-29 12:53] LABS: Varicella-Zoster DNAPCR Source CSF; Varicella-Zoster V DNA PCR <500 (<500 copies)
[2017-11-29 19:52] LABS: Lyme Ab 18KD IgG WB NON-REACTIVE; Lyme Ab 23KD IgG WB REACTIVE; Lyme Ab 23KD IgM WB NON-REACTIVE; Lyme Ab 28KD IgG WB NON-REACTIVE; Lyme Ab 30KD IgG WB NON-REACTIVE; Lyme Ab 39KD IgG WB NON-REACTIVE; Lyme Ab 39KD IgM WB NON-REACTIVE; Lyme Ab 41KD IgG WB NON-REACTIVE; Lyme Ab 41KD IgM WB NON-REACTIVE; Lyme Ab 45KD IgG WB NON-REACTIVE; Lyme Ab 58KD IgG WB NON-REACTIVE; Lyme Ab 66KD IgG WB NON-REACTIVE; Lyme Ab 93KD IgG WB NON-REACTIVE
== END 2017-11-27 12:34 | disposition home or self-care (01) ==
LOC: NEPE 18:56 → NEDA 18:56 → N05 11-22 07:30
PROVIDERS: ADMIT Hospitalist; ATTEND Hospitalist
DX: I10 Essential (primary) hypertension; R33.9 Retention of urine, unspecified; Y90.0 Blood alcohol level of less than 20 mg/100 ml; N17.9 Acute kidney failure, unspecified; L73.9 Follicular disorder, unspecified; T37.0X5A Adverse effect of sulfonamides, initial encounter; E87.1 Hypo-osmolality and hyponatremia; L27.0 Generalized skin eruption due to drugs and medicaments taken internally; F41.9 Anxiety disorder, unspecified; E87.2 Acidosis; R40.2412 Glasgow coma scale score 13-15, at arrival to emergency department; H60.12 Cellulitis of left external ear; E87.6 Hypokalemia; H60.02 Abscess of left external ear; Z88.8 Allergy status to other drugs, medicaments and biological substances; R65.20 Severe sepsis without septic shock; R11.2 Nausea with vomiting, unspecified; A41.9 Sepsis, unspecified organism; Z77.22 Contact with and (suspected) exposure to environmental tobacco smoke (acute) (chronic); R19.7 Diarrhea, unspecified; F10.231 Alcohol dependence with withdrawal delirium